=== PATIENT | female | born 1945 | race Caucasian/White ===

== ENCOUNTER → 2017-09-16 | Outpatient (CLI) | payer MEDICARE ==
--- NOTE | 2017-09-16 14:10 | MM ---
Reason for exam: screening (asymptomatic). Last mammogram was performed 1 year and 2 months ago. History: Patient is postmenopausal. Family history of breast cancer in mother at age 72. Took hormonal contraceptives for 5 years beginning at age 32. Physical Findings: A clinical breast exam by your physician is recommended on an annual basis and results should be correlated with mammographic findings. MG 3D Screening Mammo W/Cad Bilateral CC, MLO, and XCCL view(s) were taken. Prior study comparison: July 07, 2016, bilateral MG 3d screening mammo w/cad. July 20, 2013, bilateral digital screening mammo w/CAD. The breast tissue is heterogeneously dense. This may lower the sensitivity of mammography. There is no discrete abnormality. ASSESSMENT: Negative, BI-RAD 1 RECOMMENDATION: Routine screening mammogram of both breasts in 1 year.
== END ==
LOC: RADMAMWWP 11:02
PROVIDERS: ATTEND Family Medicine
DX: Z12.31 Encounter for screening mammogram for malignant neoplasm of breast (principal)
CPT/HCPCS: 77063; 77067

== ENCOUNTER → 2018-10-04 | Outpatient (CLI) | payer MEDICARE ==
--- NOTE | 2018-10-05 11:46 | MM ---
Reason for exam: screening (asymptomatic). Last mammogram was performed 1 year and 1 month ago. History: Patient is postmenopausal. Family history of breast cancer in mother at age 72. Took hormonal contraceptives for 5 years beginning at age 32. Physical Findings: A clinical breast exam by your physician is recommended on an annual basis and results should be correlated with mammographic findings. MG 3D Screening Mammo W/Cad Bilateral CC and MLO view(s) were taken. Prior study comparison: September 16, 2017, bilateral MG 3d screening mammo w/cad. July 07, 2016, bilateral MG 3d screening mammo w/cad. The breast tissue is heterogeneously dense. This may lower the sensitivity of mammography. There is no discrete abnormality. ASSESSMENT: Negative, BI-RAD 1 RECOMMENDATION: Routine screening mammogram of both breasts in 1 year.
== END | disposition home or self-care (01) ==
LOC: RADMAMWWP 07:56
PROVIDERS: ATTEND Family Medicine
DX: Z12.31 Encounter for screening mammogram for malignant neoplasm of breast (principal)
CPT/HCPCS: 77063; 77067

== ENCOUNTER → 2019-10-12 | Outpatient (CLI) | payer MEDICARE ==
--- NOTE | 2019-10-12 11:35 | CT ---
EXAMINATION TYPE: CT abdomen wo con DATE OF EXAM: 10/12/2019 COMPARISON: None INDICATION: Intra-abdominal and pelvic swelling, mass and lump unspecified area DLP: 194.90 mGycm, Automated exposure control for dose reduction was used. CONTRAST: 0 mL of Isovue 300. Study performed with Oral Contrast TECHNIQUE: Axial images were obtained from above the diaphragm to the iliac crests in the axial plane at 5 mm thick sections. Reconstructed images are reviewed on the computer in the coronal plane. FINDINGS: Limited CT sections are obtained the lung bases. Some minimal infiltrate may be within the lingula. Tiny amount of groundglass opacities are within the periphery of the right middle lobe at the lung ba se. Coronary artery calcification is present. CT ABDOMEN: Liver: Enlarged subtle hypodense masslike areas may be present within the liver. Within the left lobe liver there appear to be 2 irregular hypodense areas with some subtle peripheral enhancement measuri ng roughly 6.4 cm and 3.8 cm. Additional abnormality is suspected within the right lobe liver. MRI ma y better delineate the abnormality. Consider ultrasound of the liver for additional workup. Spleen: Normal Pancreas: Normal Adrenal glands: The adrenal glands are normal. Gallbladder: Normal Kidneys: No masses are evident. No hydronephrosis is present. No cysts are present. Delayed images were obtained through the kidneys, which remain unremarkable. Aorta: Vascular calcification is within the aorta. Inferior vena cava: Normal. Study is performed with oral contrast. Loops of bowel distended with oral contrast appear unremarkabl e. Loops of bowel are incompletely distended causing some limitation. Contrast extends to the colon. IMPRESSIONS: 1. Hepatomegaly measuring 23 cm cranial caudal with some lobation of the liver. There is some irregu lar enhancement with some central hypodensity best visualized within the left lobe liver. Multiple ma sses are suspected. Additional workup is recommended with ultrasound. MRI may be required to better d elineate suspected masses within the enlarged liver A Yellow level critical message alert has been initiated for Vern Bhakta DO via the [employer] Critical Results System on 10/12/2019 11:31 AM. This message alert has been sent to Vern lao DO via the preferences provided by the clinician for the receipt of Radiology Critical Findings . Message ID [id number].
== END | disposition home or self-care (01) ==
LOC: RADCTMAIN 09:19
PROVIDERS: ATTEND Family Medicine
DX: R16.0 Hepatomegaly, not elsewhere classified (principal); K76.89 Other specified diseases of liver; Z13.9 Encounter for screening, unspecified
CPT/HCPCS: 36415; 74150; 82565; 84520

== ENCOUNTER → 2019-10-26 | Outpatient (CLI) | payer MEDICARE | END | disposition home or self-care (01) | LOC: RADMRIMAIN 10:54 | PROVIDERS: ATTEND Surgery | DX: Z53.9 Procedure and treatment not carried out, unspecified reason (principal) ==

== ENCOUNTER 2019-12-07 14:37 | Day surgery (SDC) | payer MEDICARE ==
[2019-12-06 09:30] VITALS: BMI 25.6
--- NOTE | 2019-12-06 20:21 | P.GSHP ---
History of Present Illness H&P Date: 12/07/19 CHIEF COMPLAINT: Metastatic colon cancer to liver HISTORY OF PRESENT ILLNESS: The patient is a 74-year-old female diagnosed with metastatic colon cancer to liver. She needs a Mediport placement for chemotherapy. PAST MEDICAL HISTORY: See list PAST SURGICAL HISTORY: See list CURRENT MEDICATIONS: See list. ALLERGIES: See list. SOCIAL HISTORY: See list. FAMILY HISTORY: See list. REVIEW OF ORGAN SYSTEMS: CONSTITUTIONAL: No fevers or chills. PHYSICAL EXAMINATION: Vital signs: Stable GENERAL: Well developed and in no acute distress. Pleasant. HEENT: No sclera icterus. Extraocular movements grossly intact. Moist buccal mucosa. Head is atraumatic, normocephalic. Hears conversational speech. No nasal drainage. NECK: Supple without lymphadenopathy. No JV distention. CHEST: Non-labored respirations and equal bilateral excursions. CARDIOVASCULAR: Regular rate and rhythm. Palpable 2+ radial pulses. ABDOMEN: Nontender. MUSCULOSKELETAL: No clubbing, cyanosis or edema. NEUROLOGIC: No focal or lateralizing signs. PSYCH: Appropriate affect. Alert and oriented to person, place and time. ASSESSMENT: 1. Metastatic colon cancer 2. Need for chemotherapeutic access. PLAN: 1. Agree with Port-A-Cath placement. Past Medical History Past Medical History: Cancer, Hypertension Additional Past Medical History / Comment(s): NEW DX OF STAGE 4 COLON CANCER WITH METS. NO RX FOR HTN History of Any Multi-Drug Resistant Organisms: None Reported Past Surgical History: Hysterectomy, Tonsillectomy Additional Past Surgical History / Comment(s): CAME IN YESTERDAY FOR PARACENTISIS BUT WAS UNSUCCESSFUL. Past Anesthesia/Blood Transfusion Reactions: No Reported Reaction Smoking Status: Former smoker - Past Family History Mother Family Medical History: Cancer Medications and Allergies Home Medications Medication Instructions Recorded Confirmed Type Calcium Citrate/Vitamin D3 1 tab PO DAILY 12/01/19 12/06/19 History [Calcium Cit 315-Vit D3 250 Tab] Docusate [Colace] 100 mg PO DAILY 12/01/19 12/06/19 History LORazepam [Ativan] 0.5 mg PO BID 12/01/19 12/06/19 History Ondansetron [Zofran] 4 mg PO Q8HR PRN 12/01/19 12/06/19 History Psyllium Husk (with Sugar) 1 pack PO DAILY 12/01/19 12/06/19 History [Metamucil Powder] traMADol HCl [Ultram] 50 mg PO Q6HR PRN 12/01/19 12/06/19 History Mirtazapine [Remeron] 15 mg PO HS 12/06/19 12/06/19 History Allergies Allergy/AdvReac Type Severity Reaction Status Date / Time No Known Allergies Allergy Verified 12/06/19 09:25
[~2019-12-07 14:37] MED LIST: DEXAMETHASONE SOD PHOSPHATE 10 MG/ML 1 ML VIAL IV ONE; HYDROmorphone 0.5 MG/0.5 ML SYRINGE IVP PRN; LACTATED RINGERS 1,000 ML IV SCH; ONDANSETRON 4 MG/2 ML VIAL IVP ONE; Pre Op ABX Message 1 EACH MISC MISCELLANE ONE
[2019-12-07] MEDS ORDERED: LIDOCAINE 1% (10MG/ML) FOR IV START INTRADERMA ONE (15:10)
[2019-12-07 15:37] VITALS: RESP 18; TEMP 98.5
[2019-12-07] MEDS ORDERED: LIDOCAINE 1% INJ 10MG/ML (20 ML MDV) ONE (17:03)
[2019-12-07] MEDS ORDERED: PROPOFOL 10 MG/ML 20 ML VIAL IV ONE (17:03)
[2019-12-07] MEDS ORDERED: MIDAZOLAM 2 MG/2 ML VIAL ONE (17:03)
[2019-12-07] MEDS ORDERED: BUPIVACAIN-EPI 0.25%-1:200,000 30 ML VIAL SQ ONE (17:31)
[2019-12-07] MEDS ORDERED: HEPARIN SODIUM,PORCINE 100 UNIT/ML 5 ML VIAL IV ONE (17:31)
--- NOTE | 2019-12-07 18:04 | P.HPADDEND ---
H&P Addendum H&P Addendum Date: 12/07/19 Patient reports recent diagnosis of metastatic colon cancer. She and son confirms patient had delayed decision making for about 4 weeks. Patient received coronavirus testing and is negative. We'll proceed with port placement
[2019-12-07 18:15] VITALS: BP 134/70; PULSE 98
--- NOTE | 2019-12-07 18:33 | XR ---
EXAMINATION: XR chest 1V confirm line [facility] DATE AND TIME: 12/07/2019 6:16 PM CLINICAL INDICATION: PHH; line placement TECHNIQUE: AP upright portable chest COMPARISON: None FINDINGS: Right IJ catheter tip superimposed over the distal SVC. The lungs are clear. The pleural spaces are negative. There is no pneumothorax. The cardiac silhouette is not enlarged. The remainder of the mediastinal silhouette is unremarkable. Elevated right hemidiaphragm noted, etiology unclear Skeletal structures and soft tissues are negative for acute findings. IMPRESSION: NO ACUTE PROCESS.
--- NOTE | 2019-12-07 19:08 | P.OP ---
Date of Procedure: 12/07/19 Description of Procedure: SURGEON: ERI CASEY MD ERP ANALYST: None. PREOPERATIVE DIAGNOSES: 1. Metastatic colon cancer 2. Need for chemotherapeutic access. 3. Jaundice POSTOPERATIVE DIAGNOSES: 1. Metastatic colon cancer 2. Need for chemotherapeutic access. 3. Jaundice PROCEDURES PERFORMED: 1. Ultrasound guided central venous access of the right internal jugular venous vein. 2. Fluoroscopic guidance for central venous access right internal jugular vein less than 1 seconds. 3. Placement of right internal jugular power port 6 Croatian by [employer], Xcel[employer] Plus Port ANESTHESIA: IV sedation with local. ESTIMATED BLOOD LOSS: 5 mL. SPECIMENS REMOVED: None. COMPLICATIONS: None. INDICATIONS: The patient is a 74-year-old female recently diagnosed with metastatic colon cancer. She presents for chemotherapeutic access. Benefits and risks of surgical intervention were described including bleeding, infection, mechanical problems with his port. Informed consent was obtained. DESCRIPTION OR PROCEDURE: Patient was brought into the operating room, laid in supine position. After adequate IV sedation, the chest and right neck were prepped and draped in a standard sterile fashion including the shoulder with ChloraPrep. Timeout protocol was confirmed with the surgical team regarding the patient's name, procedure to be performed including preoperative medications for which she received IV antibiotics. Bilateral SCDs were placed. An ultrasound was used to capture views of the right internal jugular vein including right carotid artery, which was patent and without thrombus along its course. The right IJ was then localized using anesthetic for the skin. A 16 Croatian needle was used to access the IJ. A guidewire was advanced into the IJ with dark nonpulsatile venous blood. Two fingerbreadths distal to the clavicle, on the lateral third, a transverse 1.5 to 2 cm incision was deepened into the skin after localizing the skin. A pocket was created for the port. The port on the back table was flushed with heparinized saline and then attached to the catheter tubing. An adapter was fastened to the actual port site over the tubing. The port easily had fit snug into the pocket. A subcutaneous tunneler was placed along the open end of the tubing and brought out through the separate stab incision. Fluoroscopic guidance confirmed no kinking along the tubing and the port site. Next, the J-wire was exchanged for a catheter sheath for which the tubing was cut to 24 cm and then advanced through the catheter sheath. The Peel-away sheath was then removed and the tubing was secured at the junction of the superior vena cava as well as the right atrium. The tubing was found to be crossed however functional. This was all done under fluoroscopic guidance under 1 seconds. Easy pullback as well as return and aspiration was obtained of the port site. The skin incision was closed using layers using 3-0 Vicryl for the subcu followed by 4-0 Monocryl in a running subcuticular fashion. At the stick site this was also reapproximated using 4-0 Monocryl. The incisions were covered with Optifoam, The skin was cleansed and Exofin liquid glue was applied. Optifoam dressing was placed over the port site. A total of 20 mL of local anesthetic was placed. At the end of the procedure, needle, sponge, and instrument count was verified correct by rn medical surgical. Heparin lock of 5 mL was placed. The patient was awoken and pain free and taken to the second stage postanesthesia care unit. The patient tolerated the procedure well. FINDINGS: 1. No thrombus encountered along the right carotid artery or internal jugular vein. 2. Access of the right internal jugular vein under ultrasound guidance. 3. Fluoroscopy of less than 1 seconds. 4. Less than 10% thrombus along the bifurcation of the internal jugular Plan - Discharge Summary Discharge Rx Participant: Yes New Discharge Prescriptions: New Acetaminophen [Tylenol] 325 mg PO Q4H #30 tab Continue Ondansetron [Zofran] 4 mg PO Q8HR PRN PRN Reason: Nausea Docusate [Colace] 100 mg PO DAILY traMADol HCl [Ultram] 50 mg PO Q6HR PRN PRN Reason: Pain LORazepam [Ativan] 0.5 mg PO BID Psyllium Husk (with Sugar) [Metamucil Powder] 1 pack PO DAILY Calcium Citrate/Vitamin D3 [Calcium Cit 315-Vit D3 250 Tab] 1 tab PO DAILY Mirtazapine [Remeron] 15 mg PO HS Discharge Medication List Calcium Citrate/Vitamin D3 [Calcium Cit 315-Vit D3 250 Tab] 1 tab PO DAILY 12/01/19 [History] Docusate [Colace] 100 mg PO DAILY 12/01/19 [History] LORazepam [Ativan] 0.5 mg PO BID 12/01/19 [History] Ondansetron [Zofran] 4 mg PO Q8HR PRN 12/01/19 [History] Psyllium Husk (with Sugar) [Metamucil Powder] 1 pack PO DAILY 12/01/19 [History] traMADol HCl [Ultram] 50 mg PO Q6HR PRN 12/01/19 [History] Mirtazapine [Remeron] 15 mg PO HS 12/06/19 [History] Acetaminophen [Tylenol] 325 mg PO Q4H #30 tab 12/07/19 [Rx] Follow up Appointment(s)/Referral(s): Eri Casey MD [STAFF PHYSICIAN] - As Needed Patient Instructions/Handouts: *Surgery [facility] - (Anesthesia) Discharge Instructions Outpatient Surgery, Implanted Venous Access Port (GEN), How to Care for Your Implanted Venous Access Port (DC) Activity/Diet/Wound Care/Special Instructions: Remove dressing on December 11. November shower. No bathtub soaks for 2 weeks, December 20. No wide motions of the right arm to prevent dislodge of your port for 3 weeks. EXPECT BRUISING AND SLEEP WITH 2 TO 3 PILLOWS. BRUISING RESOLVES IN 2 TO 3 WEEKS. Discharge Disposition: HOME SELF-CARE
--- NOTE | 2019-12-08 07:35 | FL ---
EXAMINATION TYPE: FL guided central line placemt DATE OF EXAM: 12/07/2019 CLINICAL HISTORY: Fluoroscopic documentation during Port-A-Cath placement TECHNIQUE: Fluoroscopy. COMPARISON: None. FINDINGS: Fluoroscopic guidance was provided during procedure performed by Dr. Casey. A total o f 1 seconds of fluoroscopic time was utilized during the procedure and 1 spot images was acquired dur ing Port-A-Cath placement. IMPRESSION: As Above.
== END 2019-12-07 18:49 | disposition home or self-care (01) ==
LOC: OR 14:37
PROVIDERS: ATTEND Surgery Plastic and Reconstructive Surgery
DX: C18.9 Malignant neoplasm of colon, unspecified (principal); C78.7 Secondary malignant neoplasm of liver and intrahepatic bile duct; R17 Unspecified jaundice; Z03.818 Encounter for observation for suspected exposure to other biological agents ruled out; I10 Essential (primary) hypertension; J44.9 Chronic obstructive pulmonary disease, unspecified; E78.5 Hyperlipidemia, unspecified; Z79.899 Other long term (current) drug therapy; Z90.710 Acquired absence of both cervix and uterus; Z90.89 Acquired absence of other organs; Z87.891 Personal history of nicotine dependence; Z80.9 Family history of malignant neoplasm, unspecified
CPT/HCPCS: 36561; 87635; 77001; C1788; J2250; J1642; J1100; J0690; J2405; J2001; J2704

== ENCOUNTER 2020-02-07 21:03 | Inpatient (IN) | payer MEDICARE ==
[2020-02-07] MEDS ORDERED: IPRATROPIUM-ALBUTEROL 3 ML NEB INHALATION STA (21:50)
--- NOTE | 2020-02-07 21:54 | ED ---
SOB HPI - General Chief Complaint: Shortness of Breath Stated Complaint: SOB Time Seen by Provider: 02/07/20 21:26 Source: patient, family, RN notes reviewed Mode of arrival: wheelchair - History of Present Illness Initial Comments: This is a 74-year-old female history of metastatic colon cancer who just had chemotherapy week who presents with complaints of shortness of breath is been going on for about a week or so getting progressively worse especially over last day or 2. He also complains of increasing lower extremity edema. No fevers chills or sweats she states she does get nauseated she takes a inhaler at home. Patient also complains of weakness. No other modifying factors other than she does have a distended abdomen she states she has had a paracentesis recently. MD Complaint: shortness of breath - Related Data Home Medications Medication Instructions Recorded Confirmed LORazepam [Ativan] 0.25 mg PO BID@1100,1700 12/01/19 02/07/20 traMADol HCl [Ultram] 50 mg PO TID@0800,1400,199912/01/19 02/07/20 Albuterol Sulfate [Ventolin HFA] 2 puff INHALATION RT-Q6H PRN 02/07/20 02/07/20 Famotidine [Pepcid AC] 10 mg PO DAILY@0800 02/07/20 02/07/20 Furosemide [Lasix] 20 mg PO DAILY PRN 02/07/20 02/07/20 Ondansetron [Zofran ODT] 4 - 8 mg PO Q6H PRN 02/07/20 02/07/20 Potassium Chloride ER [K-Dur 10] 10 meq PO DAILY PRN 02/07/20 02/07/20 Prochlorperazine [Compazine] 10 mg PO Q6H PRN 02/07/20 02/07/20 Sennosides/Docusate Sodium 1 tab PO HS@199902/07/20 02/07/20 [Senna-Plus Tablet] Allergies Allergy/AdvReac Type Severity Reaction Status Date / Time No Known Allergies Allergy Verified 02/07/20 21:20 Review of Systems ROS Statement: Those systems with pertinent positive or pertinent negative responses have been documented in the HPI. ROS Other: All systems not noted in ROS Statement are negative. Past Medical History Past Medical History: Cancer, Hypertension Additional Past Medical History / Comment(s): NEW DX OF STAGE 4 COLON CANCER WITH METS. NO RX FOR HTN History of Any Multi-Drug Resistant Organisms: None Reported Past Surgical History: Hysterectomy, Tonsillectomy Additional Past Surgical History / Comment(s): PARACENTISIS, port placement Past Anesthesia/Blood Transfusion Reactions: No Reported Reaction Past Psychological History: Anxiety, Depression Smoking Status: Former smoker Past Alcohol Use History: None Reported Past Drug Use History: None Reported - Past Family History Mother Family Medical History: Cancer General Exam - General Exam Comments Initial Comments: This is a well-developed sec appearing female who is awake alert oriented 3 General appearance: alert, lethargic Head exam: Present: atraumatic, normocephalic, normal inspection Eye exam: Present: normal appearance, PERRL, EOMI. Absent: scleral icterus, conjunctival injection, periorbital swelling ENT exam: Present: normal exam, mucous membranes moist Neck exam: Present: normal inspection, full ROM, other. Absent: tenderness, meningismus, lymphadenopathy Respiratory exam: Present: decreased breath sounds (Stridor JVD or bruits). Absent: respiratory distress, wheezes, rales, rhonchi, stridor Cardiovascular Exam: Present: normal rhythm, tachycardia, normal heart sounds. Absent: systolic murmur, diastolic murmur, rubs, gallop, clicks GI/Abdominal exam: Present: soft, normal bowel sounds. Absent: distended, tenderness, guarding, rebound, rigid Extremities exam: Present: normal inspection, full ROM, normal capillary refill, pedal edema. Absent: tenderness, joint swelling, calf tenderness Back exam: Present: normal inspection Neurological exam: Present: alert, oriented X3, CN II-XII intact Psychiatric exam: Present: normal affect, normal mood Skin exam: Present: warm, dry, intact, normal color. Absent: rash Course Vital Signs 02/07/20 02/07/20 02/07/20 21:17 21:37 22:13 Temperature 98.5 F Pulse Rate 107 H 103 H Respiratory 16 Rate Blood Pressure 120/65 O2 Sat by Pulse 94 L 99 Oximetry 02/07/20 22:41 Temperature Pulse Rate 102 H Respiratory 16 Rate Blood Pressure 126/68 O2 Sat by Pulse 98 Oximetry Medical Decision Making - Medical Decision Making I did discuss findings with the patient and her son was present. Patient does have evidence of peripheral edema CHF elevated BNP also mildly elevated troponin. Patient will be admitted with consultation to Dr. Mathew and Dr. Song. The patient would like to forego cardiology consult this time. IV Lasix patient was offered a Brasher catheter and is declining at this time. Also of note patient did get some relief in her breathing after nebulizer treatments so there is a component of COPD. - Lab Data Result diagrams: 02/07/20 22:11 02/07/20 22:11 Lab Results 02/07/20 02/07/20 02/07/20 Range/Units 22:11 22:11 22:11 WBC 36.0 H (3.8-10.6) k/uL RBC 2.68 L (3.80-5.40) m/uL Hgb 8.3 L (11.4-16.0) gm/dL Hct 26.2 L (34.0-46.0) % MCV 97.9 (80.0-100.0) fL MCH 30.8 (25.0-35.0) pg MCHC 31.4 (31.0-37.0) g/dL RDW 22.0 H (11.5-15.5) % Plt Count 173 (150-450) k/uL Neutrophils % (Manual) 79 % Band Neutrophils % 15 % Lymphocytes % (Manual) 2 % Monocytes % (Manual) 2 % Metamyelocytes % 2 % Myelocytes % 1 % Neutrophils # (Manual) 33.80 H (1.3-7.7) k/uL Lymphocytes # (Manual) 0.72 L (1.0-4.8) k/uL Monocytes # (Manual) 0.72 (0-1.0) k/uL Metamyelocytes # (Man) 0.72 H (0) k/uL Myelocytes # (Manual) 0.36 H (0) k/uL Nucleated RBCs 2 H (0-0) /100 WBC Manual Slide Review Performed Toxic Vacuolation Present Polychromasia Present Hypochromasia Moderate Poikilocytosis Slight Anisocytosis Moderate Anisocytosis (manual) Present Macrocytosis Moderate PT 11.2 (9.0-12.0) sec INR 1.1 (<1.2) APTT 26.7 (22.0-30.0) sec D-Dimer 4.01 H (<0.60) mg/L FEU Sodium 133 L (137-145) mmol/L Potassium 3.5 (3.5-5.1) mmol/L Chloride 98 (98-107) mmol/L Carbon Dioxide 29 (22-30) mmol/L Anion Gap 6 mmol/L BUN 13 (7-17) mg/dL Creatinine 0.51 L (0.52-1.04) mg/dL Est GFR (CKD-EPI)AfAm >90 (>60 ml/min/1.73 sqM) Est GFR (CKD-EPI)NonAf >90 (>60 ml/min/1.73 sqM) Glucose 104 H (74-99) mg/dL Plasma Lactic Acid Alex (0.7-2.0) mmol/L Calcium 8.3 L (8.4-10.2) mg/dL Magnesium 1.6 (1.6-2.3) mg/dL Total Bilirubin 2.4 H (0.2-1.3) mg/dL AST 73 H (14-36) U/L ALT 21 (4-34) U/L Alkaline Phosphatase 438 H (38-126) U/L Creatine Kinase 22 L (30-135) U/L Troponin I (0.000-0.034) ng/mL NT-Pro-B Natriuret Pep pg/mL Total Protein 4.8 L (6.3-8.2) g/dL Albumin 2.3 L (3.5-5.0) g/dL 02/07/20 02/07/20 02/07/20 Range/Units 22:11 22:11 22:11 WBC (3.8-10.6) k/uL RBC (3.80-5.40) m/uL Hgb (11.4-16.0) gm/dL Hct (34.0-46.0) % MCV (80.0-100.0) fL MCH (25.0-35.0) pg MCHC (31.0-37.0) g/dL RDW (11.5-15.5) % Plt Count (150-450) k/uL Neutrophils % (Manual) % Band Neutrophils % % Lymphocytes % (Manual) % Monocytes % (Manual) % Metamyelocytes % % Myelocytes % % Neutrophils # (Manual) (1.3-7.7) k/uL Lymphocytes # (Manual) (1.0-4.8) k/uL Monocytes # (Manual) (0-1.0) k/uL Metamyelocytes # (Man) (0) k/uL Myelocytes # (Manual) (0) k/uL Nucleated RBCs (0-0) /100 WBC Manual Slide Review Toxic Vacuolation Polychromasia Hypochromasia Poikilocytosis Anisocytosis Anisocytosis (manual) Macrocytosis PT (9.0-12.0) sec INR (<1.2) APTT (22.0-30.0) sec D-Dimer (<0.60) mg/L FEU Sodium (137-145) mmol/L Potassium (3.5-5.1) mmol/L Chloride (98-107) mmol/L Carbon Dioxide (22-30) mmol/L Anion Gap mmol/L BUN (7-17) mg/dL Creatinine (0.52-1.04) mg/dL Est GFR (CKD-EPI)AfAm (>60 ml/min/1.73 sqM) Est GFR (CKD-EPI)NonAf (>60 ml/min/1.73 sqM) Glucose (74-99) mg/dL Plasma Lactic Acid Alex 2.0 (0.7-2.0) mmol/L Calcium (8.4-10.2) mg/dL Magnesium (1.6-2.3) mg/dL Total Bilirubin (0.2-1.3) mg/dL AST (14-36) U/L ALT (4-34) U/L Alkaline Phosphatase (38-126) U/L Creatine Kinase (30-135) U/L Troponin I 0.053 H* (0.000-0.034) ng/mL NT-Pro-B Natriuret Pep 4120 pg/mL Total Protein (6.3-8.2) g/dL Albumin (3.5-5.0) g/dL - EKG Data -: EKG Interpreted by Ar EKG shows normal: sinus rhythm (Sinus tachycardia rate 103. Interval 118 QRS duration 74 QT since QTC 322/421 poor R-wave progression.) - Radiology Data Radiology results: report reviewed, image reviewed Disposition Clinical Impression: Congestive heart failure, Peripheral edema, Ascites, Elevated troponin, Metastatic colon cancer in female Disposition: ADMITTED IP TO THIS [facility] Condition: Fair Referrals: Vern Bhakta DO [Primary Care Provider] - 1-2 days
[2020-02-07 22:30] LABS: ALT 21 U/L (4-34); AST 73 U/L (14-36); African American GFR (CKD) >90 (>60 ml/min/1.73 sqM); Albumin 2.3 g/dL (3.5-5.0); Alkaline Phosphatase 438 U/L (38-126); Anion Gap 6 mmol/L; Blood Urea Nitrogen 13 mg/dL (7-17); Calcium 8.3 mg/dL (8.4-10.2); Carbon Dioxide 29 mmol/L (22-30); Chloride 98 mmol/L (98-107); Creatine Kinase 22 U/L (30-135); Glucose 104 mg/dL (74-99); Magnesium 1.6 mg/dL (1.6-2.3); Non-African American GFR(CKD) >90 (>60 ml/min/1.73 sqM); Potassium 3.5 mmol/L (3.5-5.1); Sodium 133 mmol/L (137-145); Total Bilirubin 2.4 mg/dL (0.2-1.3); Total Protein 4.8 g/dL (6.3-8.2)
[2020-02-07 22:32] LABS: Anisocytosis Moderate; HCT 26.2 % (34.0-46.0); HGB 8.3 gm/dL (11.4-16.0); Hypochromasia Moderate; MCH 30.8 pg (25.0-35.0); MCHC 31.4 g/dL (31.0-37.0); MCV 97.9 fL (80.0-100.0); Macrocytosis Moderate; Mean Platelet Volume 8.3; Platelet Count 173 k/uL (150-450); Poikilocytosis Slight; RBC 2.68 m/uL (3.80-5.40)
[2020-02-07 22:37] LABS: INR 1.1 (<1.2); Partial Thromboplastin Time 26.7 sec (22.0-30.0); Prothrombin Time 11.2 sec (9.0-12.0)
[2020-02-07 22:39] LABS: D-Dimer 4.01 mg/L FEU (<0.60)
--- NOTE | 2020-02-07 22:41 | XR ---
EXAMINATION TYPE: XR chest 2V DATE OF EXAM: 02/07/2020 COMPARISON: 12/07/2019 HISTORY: Short of breath TECHNIQUE: 2 views FINDINGS: There is right-sided central venous catheter with the tip in the superior vena cava. There is moderate bilateral pleural effusions with basilar atelectasis. There is no definite heart failure. Bones appear osteopenic. IMPRESSION: Bilateral pleural effusions and basilar atelectasis increased compared to old exam. No de finite heart failure.
[2020-02-07 22:52] LABS: Band Neutrophils % 15 %; Metamyelocytes % 2 %; Myelocytes % 1 %; Neutrophils % (M) 79 %; Nucleated Red Blood Cells 2 /100 WBC (0-0); Total Cells Counted 200
[2020-02-07 22:53] LABS: Anisocytosis (M) Present; Lymphocytes # (M) 0.72 k/uL (1.0-4.8); Metamyelocytes # (M) 0.72 k/uL (0); Monocytes # (M) 0.72 k/uL (0-1.0); Myelocytes # (M) 0.36 k/uL (0); Polychromasia Present; Toxic Vacuolation Present
--- NOTE | 2020-02-07 23:33 | CT ---
EXAMINATION TYPE: CT angio chest DATE OF EXAM: 02/07/2020 COMPARISON: None HISTORY: elevated d-dimer CT DLP: 261.6 mGycm Automated exposure control for dose reduction was used. CONTRAST: Performed with IV Contrast, patient injected with 96cc mL of Isovue 370. Images were obtained from the thoracic inlet to the diaphragm with IV contrast and 3-D post processed images. There are mild to moderate bilateral pleural effusions. Heart is slightly enlarged. There is patchy i nfiltrate and atelectasis at the lung bases. There is some coarse interstitial pulmonary density. The re is no mediastinal adenopathy. There are no hilar masses. Thoracic aorta is intact. There is no ane urysm or dissection. There is normal contrast opacification of the pulmonary arteries. There are no filling defects. There is some plaque formation at the descending proximal thoracic aorta. There is heterogeneity throughout the liver suggestive of multiple masses. There is abdominal ascites . There is some osteopenia. There is slight anterior wedging of T10 vertebra 15%. There is 15% wedging of T4 vertebra. This is probably due to osteoporosis. I see no focal bone destruction. IMPRESSION: No evidence of pulmonary embolism. Pleural effusions and basilar infiltrates and atelectasis probably due to congestive heart failure. Abdominal ascites. Extensive hepatic metastatic disease also evident on the CT scan of 10/12/2019. Ple ural fluid and abdominal ascites are new compared to old exam.
[2020-02-08] MEDS ORDERED: FUROSEMIDE 10 MG/ML 4 ML VIAL IV STA (00:25)
[2020-02-08] MEDS ORDERED: PROCHLORPERAZINE 10 MG TAB PO PRN (00:27)
[2020-02-08] MEDS ORDERED: LIDOCAINE 5% PATCH TOPICAL STA (00:35)
[2020-02-08] MEDS: FUROSEMIDE 10 MG/ML 4 ML VIAL IV SCH ×3 (01:17→17:06)
[2020-02-08] MEDS: SODIUM CHLORIDE 0.9% 1,000 ML IV SCH (04:22)
[2020-02-08] MEDS ORDERED: POTASSIUM CHLORIDE ER 10 MEQ TAB.ER.PRT PO PRN (09:00)
[2020-02-08] MEDS: traMADol 50 MG TAB PO SCH ×3 (09:12→20:42)
[2020-02-08] MEDS: ONDANSETRON 4 MG/2 ML VIAL IVP PRN ×2 (09:13→17:23)
[2020-02-08] MEDS: FAMOTIDINE 20 MG TAB PO SCH (09:13)
[2020-02-08 10:21] LABS: Anisocytosis Moderate; Basophils # (A) 0.1 k/uL (0-0.2); Basophils % (A) 1 %; Eosinophils # (A) 0.1 k/uL (0-0.7); Eosinophils % (A) 0 %; HCT 26.6 % (34.0-46.0); HGB 8.6 gm/dL (11.4-16.0); Hypochromasia Moderate; Lymphocytes # (A) 0.9 k/uL (1.0-4.8); Lymphocytes % (A) 4 %; MCH 31.5 pg (25.0-35.0); MCHC 32.4 g/dL (31.0-37.0); MCV 97.1 fL (80.0-100.0); Macrocytosis Moderate; Mean Platelet Volume 8.1; Monocytes # (A) 0.8 k/uL (0-1.0); Monocytes % (A) 4 %; Neutrophils # (A) 20.2 k/uL (1.3-7.7); Neutrophils % (A) 91 %; Platelet Count 169 k/uL (150-450); Poikilocytosis Slight; RBC 2.75 m/uL (3.80-5.40); RDW 21.9 % (11.5-15.5); WBC 22.3 k/uL (3.8-10.6)
[2020-02-08 10:42] LABS: ALT 21 U/L (4-34); AST 74 U/L (14-36); African American GFR (CKD) >90 (>60 ml/min/1.73 sqM); Albumin 2.4 g/dL (3.5-5.0); Alkaline Phosphatase 460 U/L (38-126); Anion Gap 7 mmol/L; Blood Urea Nitrogen 13 mg/dL (7-17); Calcium 8.2 mg/dL (8.4-10.2); Carbon Dioxide 31 mmol/L (22-30); Chloride 96 mmol/L (98-107); Glucose 111 mg/dL (74-99); Magnesium 1.6 mg/dL (1.6-2.3); Non-African American GFR(CKD) >90 (>60 ml/min/1.73 sqM); Sodium 134 mmol/L (137-145); Total Bilirubin 2.7 mg/dL (0.2-1.3)
[2020-02-08] MEDS ORDERED: Magnesium Replacement Protocol 1 EACH MISC MISCELLANE PRN ×2 (10:55→11:34)
[2020-02-08] MEDS ORDERED: Potassium Replacement Protocol 1 EACH MISC MISCELLANE PRN ×3 (10:55→18:29)
[2020-02-08] MEDS ORDERED: POTASSIUM CHLORIDE 20 MEQ in WATER FOR INJECTION 1 100ML.BAG IVPB STA (11:01)
[2020-02-08] MEDS ORDERED: IOPAMIDOL CONTRAST (ORAL USE) VIAL PO PRN (11:04)
[2020-02-08] MEDS ORDERED: POTASSIUM CHLORIDE ER 20 MEQ TAB.ER PO STA (11:11)
[2020-02-08] MEDS: LORazepam 0.5 MG TAB PO SCH ×2 (11:13→17:06)
[2020-02-08] MEDS: POTASSIUM CHLORIDE ER 20 MEQ TAB.ER PO SCH ×4 (11:14→18:30)
[2020-02-08] MEDS: MAGNESIUM SULFATE-D5W PMX 1 GM in DEXTROSE/WATER 1 100ML.BAG IVPB SCH ×2 (12:35→14:20)
--- NOTE | 2020-02-08 12:56 | US ---
EXAMINATION TYPE: US venous doppler duplex LE DATE OF EXAM: 02/08/2020 12:36 PM COMPARISON: NONE CLINICAL HISTORY: bilateral leg swelling/redness. Bilateral leg swelling SIDE PERFORMED: Bilateral TECHNIQUE: The lower extremity deep venous system is examined utilizing real time linear array sonog alissa with graded compression, doppler sonography and color-flow sonography. VESSELS IMAGED: External Iliac Vein (EIV) Common Femoral Vein Deep Femoral Vein Greater Saphenous Vein * Femoral Vein Popliteal Vein Small Saphenous Vein * Proximal Calf Veins (* superficial vessels) Right Leg: Appears negative for DVT Left Leg: Appears negative for DVT IMPRESSION: 1. No diagnostic evidence of DVT as visualized.
--- NOTE | 2020-02-08 13:45 | P.CRDCN ---
History of Present Illness History of present illness: HISTORY OF PRESENTING ILLNESS This is a pleasant 74-year-old female past medical history significant for colon cancer with metastasis to the liver, hypertension that has improved s nicky being diagnosed with cancer and former nicotine dependence. 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 We have been asked to see in consultation for troponin elevation. she states she has been increasingly short of breath over the previous one week. over the previous 2 days her symptoms have worsened. She is unable to lay flat and is only comfortable in certain positions. She has required paracentesis on 2 separate occasions secondary to recurrent ascites. She is scheduled to have one on Wednesday. Her daughter is at the bedside and provides much of her historical information. She was sent to the hospital on advice of her oncologist secondary to increasing shortness of breath and edema. She denies chest pain, dizziness or palpitations. DIAGNOSTICS EKG reveals sinus tachycardia with poor R-wave progression heart rate of 103. Chest xray bilateral pleural effusions and basilar atelectasis. CTA of the chest is negative for pulmonary embolism, bilateral pleural effusions and abdominal ascites. Extensive hepatic metastatic disease evident. Laboratory reviewed, WBC on admission 30 6 repeat today 22, hemoglobin 8.6, platelets 169,sodium 134, potassium 3.0, creatinine 0.51, magnesium 1.6, alkaline phosphatase 460, albumin 2.4, total protein 5.0, troponin 0.053, 0.055, 0.054 and NTproBNP 4120. Current cardiac medications include Lasix 20 mg daily as needed for lower extremity edema. REVIEW OF SYSTEMS At the time of my exam: CONSTITUTIONAL: Denies fever or chills. CARDIOVASCULAR: Complains of shortness of breath and orthopnea. Denies chest pain, PND or palpitations. RESPIRATORY: Denies cough. GASTROINTESTINAL: Denies abdominal pain, diarrhea, constipation, nausea or vomiting. MUSCULOSKELETAL: Denies myalgias. NEUROLOGIC: Denies numbness, tingling or weakness. ENDOCRINE: Denies fatigue, weight change, polydipsia or polyurina. GENITOURINARY: Denies burning, hematuria or urgency with micturation. HEMATOLOGIC: Denies history of anemia or bleeding. PHYSICAL EXAMINATION Blood pressure 111/75 heart rate 101 afebrile and maintaining oxygen saturation on . CONSTITUTIONAL: No apparent distress. HEENT: Head is normocephalic. Pupils are equal, round. Sclerae anicteric. Mucous membranes of the mouth are moist. No JVD. No carotid bruit. CHEST EXAMINATION: Lungs are clear to auscultation. No chest wall tenderness is noted on palpation or with deep breathing. Diminished bilaterally. HEART EXAMINATION: Regular rate and rhythm. S1, S2 heard. No murmurs, gallops or rub. ABDOMEN: Soft, nontender, distended. Positive bowel sounds. EXTREMITIES: 2+ peripheral pulses, 2+ pitting bilateral lower extremity edema and no calf tenderness. NEUROLOGIC EXAMINATION: Patient is awake, alert and oriented x3. ASSESSMENT Fluid overload secondary to metastatic colon and liver CA and hypoalbuminemia Troponin leak, not indicative of an acute event with no typical rise and fall pattern. No chest pain or EKG changes. Hypokalemia Metastatic colon cancer Prior history hypertension with recent hypotension Former nicotine dependence PLAN Replace potassium per protocol. Obtain 2D echocardiogram and doppler study to assess cardiac structure and function. If echo is normal there is no further cardiac work-up or evaluation required. Ongoing medical management and possible paracentesis. Thank you kindly for this consultation. Nurse Practitioner note has been reviewed, I agree with a documented findings and plan of care. Patient was seen and examined. Past Medical History Past Medical History: Cancer, Hypertension Additional Past Medical History / Comment(s): NEW DX OF STAGE 4 COLON CANCER WITH METS. NO RX FOR HTN History of Any Multi-Drug Resistant Organisms: None Reported Past Surgical History: Hysterectomy, Tonsillectomy Additional Past Surgical History / Comment(s): PARACENTISIS, port placement Past Anesthesia/Blood Transfusion Reactions: No Reported Reaction Past Psychological History: Anxiety, Depression Smoking Status: Former smoker Past Alcohol Use History: None Reported Additional Past Alcohol Use History / Comment(s): QUIT SMOKING 2016 Past Drug Use History: None Reported - Past Family History Mother Family Medical History: Cancer Medications and Allergies Home Medications Medication Instructions Recorded Confirmed Type LORazepam [Ativan] 0.25 mg PO BID@1100,1700 12/01/19 02/07/20 History traMADol HCl [Ultram] 50 mg PO TID@0800,1400,2000 12/01/19 02/07/20 History Albuterol Sulfate [Ventolin HFA] 2 puff INHALATION RT-Q6H PRN 02/07/20 02/07/20 History Famotidine [Pepcid AC] 10 mg PO DAILY@0800 02/07/20 02/07/20 History Furosemide [Lasix] 20 mg PO DAILY PRN 02/07/20 02/07/20 History Ondansetron [Zofran ODT] 4 - 8 mg PO Q6H PRN 02/07/20 02/07/20 History Potassium Chloride ER [K-Dur 10] 10 meq PO DAILY PRN 02/07/20 02/07/20 History Prochlorperazine [Compazine] 10 mg PO Q6H PRN 02/07/20 02/07/20 History Sennosides/Docusate Sodium 1 tab PO HS@199902/07/20 02/07/20 History [Senna-Plus Tablet] Allergies Allergy/AdvReac Type Severity Reaction Status Date / Time No Known Allergies Allergy Verified 02/07/20 21:20 Physical Exam Vitals: Vital Signs Temp Pulse Pulse Resp BP BP Pulse Ox 02/08/20 12:45 97.5 F L 101 H 17 111/65 92 L 02/08/20 07:00 97.6 F 105 H 16 120/72 95 02/08/20 02:05 98.1 F 104 H 16 100/67 97 02/08/20 01:45 78 18 125/77 96 02/07/20 22:41 102 H 16 126/68 98 02/07/20 22:13 103 H 02/07/20 21:37 99 02/07/20 21:17 98.5 F 107 H 16 120/65 94 L Intake and Output 02/07/20 02/08/20 02/08/20 22:59 06:59 14:59 Output Total 1100 1950 Balance -1099 -1949 Output: Urine 1100 1950 Other: Voiding Method Bedpan Weight 68.039 kg 68.039 kg 68.039 kg Results 02/08/20 10:05 02/08/20 10:05 Cardiac Enzymes 02/07/20 02/07/20 02/08/20 Range/Units 22:11 22:11 01:44 AST 73 H (14-36) U/L Troponin I 0.053 H* 0.055 H* (0.000-0.034) ng/mL 02/08/20 02/08/20 Range/Units 03:25 10:05 AST 74 H (14-36) U/L Troponin I 0.054 H* (0.000-0.034) ng/mL Coagulation 02/07/20 Range/Units 22:11 PT 11.2 (9.0-12.0) sec APTT 26.7 (22.0-30.0) sec CBC 02/07/20 02/08/20 Range/Units 22:11 10:05 WBC 36.0 H 22.3 H (3.8-10.6) k/uL RBC 2.68 L 2.75 L (3.80-5.40) m/uL Hgb 8.3 L 8.6 L (11.4-16.0) gm/dL Hct 26.2 L 26.6 L (34.0-46.0) % Plt Count 173 169 (150-450) k/uL Comprehensive Metabolic Panel 02/07/20 02/08/20 Range/Units 22:11 10:05 Sodium 133 L 134 L (137-145) mmol/L Potassium 3.5 3.0 L (3.5-5.1) mmol/L Chloride 98 96 L (98-107) mmol/L Carbon Dioxide 29 31 H (22-30) mmol/L BUN 13 13 (7-17) mg/dL Creatinine 0.51 L 0.51 L (0.52-1.04) mg/dL Glucose 104 H 111 H (74-99) mg/dL Calcium 8.3 L 8.2 L (8.4-10.2) mg/dL AST 73 H 74 H (14-36) U/L ALT 21 21 (4-34) U/L Alkaline Phosphatase 438 H 460 H (38-126) U/L Total Protein 4.8 L 5.0 L (6.3-8.2) g/dL Albumin 2.3 L 2.4 L (3.5-5.0) g/dL Current Medications Generic Name Dose Route Start Last Admin Trade Name Freq PRN Reason Stop Dose Admin Famotidine 10 mg 02/08/20 08:00 02/08/20 09:13 Pepcid PO 10 mg DAILY@0800 DOMINGO Administration Furosemide 40 mg 02/08/20 00:30 02/08/20 09:14 Lasix IV 40 mg Q8H DOMINGO Administration Sodium Chloride 1,000 mls @ 20 mls/hr 02/08/20 00:30 02/08/20 04:22 Saline 0.9% IV 20 mls/hr .Q24H DOMINGO Administration Magnesium Sulfate/Dextrose 1 100 mls @ 100 mls/hr 02/08/20 11:45 02/08/20 12:35 gm/ IV Solution IVPB 02/08/20 13:44 100 mls/hr Q1H DOMINGO Administration Iopamidol 30 ml 02/08/20 11:04 Isovue-300 (For Oral Use) PO 02/09/20 11:[address] Scan Lorazepam 0.25 mg 02/08/20 11:00 02/08/20 11:13 Ativan PO 0.25 mg BID@1100,1700 DOMINGO Administration Miscellaneous Information 1 each 02/08/20 10:55 Potassium Per Protocol MISCELLANE DAILY PRN Per Protocol Protocol Miscellaneous Information 1 each 02/08/20 10:55 Magnesium Per Protocol MISCELLANE DAILY PRN Per Protocol Protocol Miscellaneous Information 1 each 02/08/20 11:34 Magnesium Per Protocol MISCELLANE DAILY PRN Per Protocol Protocol Ondansetron HCl 4 mg 02/08/20 00:29 02/08/20 09:13 Zofran IVP 4 mg Q8HR PRN Administration Nausea Potassium Chloride 10 meq 02/08/20 09:00 K-Dur 10 PO DAILY PRN TAKE WITH LASIX Prochlorperazine Maleate 10 mg 02/08/20 00:27 Compazine PO Q6H PRN Nausea Senna/Docusate Sodium 1 each 02/08/20 20:00 Senokot-S PO HS@1999 [facility] Tramadol HCl 50 mg 02/08/20 08:00 02/08/20 09:12 Ultram PO 50 mg TID@0800,1400,1999 DOMINGO Administration Intake and Output 02/07/20 02/08/20 02/08/20 22:59 06:59 14:59 Output Total 1100 1950 Balance -1100 -1950 Output: Urine 1100 1950 Other: Voiding Method Bedpan Weight 68.039 kg 68.039 kg 68.039 kg Patient Weight 02/09/20 06:59 Weight 68.039 kg 02/08/20 10:05 02/08/20 10:05
[2020-02-08] MEDS ORDERED: HYDROcodone/APAP 5-325MG 1 EACH TAB PO PRN (14:35)
[2020-02-08] MEDS ORDERED: ALBUTEROL NEBULIZED 2.5 MG/3 ML INHALATION PRN (14:37)
--- NOTE | 2020-02-08 15:17 | HP ---
HISTORY AND PHYSICAL DATE OF SERVICE: 02/08/2020 CHIEF COMPLAINT: Shortness of breath and abdominal distention. HISTORY OF PRESENT ILLNESS: This is a 74-year-old woman with a past medical history of multiple medical problems including history of stage IV colon cancer with METS, hypertension, history of tonsillectomy, being followed by Dr. Vern Bhakta in the outpatient setting, receiving chemotherapy. The patient was complaining of increased shortness of breath. The patient multiple paracentesis previously. Patient had abdominal distention, patient came to [facility] yesterday. CHF acute exacerbation. Suspect the patient had bilateral pleural effusion. Troponin is elevated at 0.055 and the patient admitted for further evaluation. There is no history of fever, chills or rigors. No history of headache, loss of consciousness, seizures. Patient also complained of generalized weakness and tiredness, also. PAST MEDICAL HISTORY: History of colon cancer with METS, hypertension, hysterectomy, tonsillectomy. HOME MEDICATIONS: Reviewed and include: 1. Ultram 50 mg p.o. t.i.d. 2. Senna 1 tablet q.h.s. 3. Compazine 10 mg q.6 p.r.n. 4. K-Dur 10 mEq p.o. daily. 5. Zofran 48 mg q.h.s. 6. Ativan 0.25 mg b.i.d. 7. Lasix 20 mg daily. 8. Pepcid AC 10 mg p.o. daily. 9. Ventolin 2 puffs q.6 p.r.n. ALLERGIES: None. FAMILY HISTORY: History of cancer in the family. SOCIAL HISTORY: History of smoking. No history of current smoking or alcohol. REVIEW OF SYSTEMS: ENT: No diminished hearing or vision. CARDIOVASCULAR: As mentioned earlier. RESPIRATION: As mentioned earlier. GI: As mentioned earlier. : No dysuria. NERVOUS SYSTEM: No numbness or weakness. ALLERGY/IMMUNOLOGY: As mentioned earlier. MUSCULOSKELETAL: As mentioned earlier. HEMATOLOGY/ONCOLOGY: As mentioned earlier. ENDOCRINE: No history of diabetes or hypothyroidism. CONSTITUTIONAL: As mentioned earlier. DERMATOLOGY: Negative. RHEUMATOLOGY: Negative. PSYCHIATRY: As mentioned earlier. PHYSICAL EXAMINATION: Alert oriented x3, pulse 105, blood pressure 110/72, respirations 16, temperature 97.6, pulse ox 94% on 2 L. HEENT: Conjunctivae normal. Oral mucosa moist. NECK: No jugular venous distention. No lymph node enlargement. CARDIOVASCULAR: S1, S2. No S3, no S4. RESPIRATION: Breath sounds diminished at the bases. A few scattered rhonchi, no crackles. ABDOMEN: Soft, mild diffuse distention present. Mild diffuse discomfort on palpation. No guarding. No rigidity. Ascites present. Abdominal wall edema present. LEGS: Bilateral leg edema, erythema also present. NERVOUS SYSTEM: Higher functions as mentioned earlier. Moves all 4 limbs. No focal motor deficits. LYMPHATICS: No lymph node enlargement in the neck or axillae. JOINTS: No active deformity. LABS: WBC is 22.2, hemoglobin is 8.6, sodium 134, potassium 3 and calcium is 8.2, total bilirubin is 2.7 and alkaline phosphatase is 460 and troponin 0.055. Albumin is 2.4. ASSESSMENT: 1. Shortness of breath, possibly congestive heart failure acute exacerbation with possible acute diastolic dysfunction, ejection fraction unknown. 2. Troponin 0.055 indeterminate, possibly type 2 myocardial infarction. 3. Ascites secondary to malignancy, recurrent. 4. Colon cancer stage IV with METS in the liver. 5. Hyponatremia. 6. Hypokalemia. 7. Elevated bilirubin secondary to hepatic METS. 8. Increased AST. 9. Increased alkaline phosphatase. 10.Hypoalbuminemia with mild protein calorie malnutrition. 11.Bilateral leg swelling and leg cellulitis. 12.Anemia, secondary to malignancy. 13.Increased WBC, multifactorial. 14.History of hypertension. 15.Hysterectomy. 16.History of tonsillectomy. 17.History of anxiety, depression. 18.Remote history of nicotine dependence. 19.Elevated D-dimer without any evidence of any pulmonary embolism. RECOMMENDATION: In this 74-year-old woman who presented with multiple medical issues, at this time I recommend to continue the current medications, symptomatic treatment. Otherwise, continue with Lasix and we will obtain the PT, INR and otherwise I would recommend resume the home medications, empiric antibiotics. Overall prognosis guarded because of multiple complex medical issues. Further recommendations to follow. Repeat labs are ordered. Discussed with the patient's family, understands and agrees. Will replace potassium. MMODL / IJN: [id number] /
--- NOTE | 2020-02-08 16:35 | P.CONS ---
History of Present Illness - Reason for Consult Consult date: 02/08/20 Metastatic COlon Cancer Requesting physician: Wilmer Soria - Chief Complaint SOB - History of Present Illness Ms Dowd he is a pleasant white female, in overall good health and baseline. The patient had developed some vague abdominal complaints, with bloating, upper abdominal discomfort and nausea off and on since about 08/07. These were apparently minor initially and the patient was able to continue working until 10/05. At that time due to progression of symptoms she had a CT of the abdomen done without contrast on 10/12/19. This indicated enlarged subtle hypodense masslike areas within the liver with the largest in the left lobe measuring 6.4 cm and 3.8 cm. MRI was recommended for further workup. No other significant abnormality was seen, other than hepatomegaly. It appears that the patient was not very compliant with follow-up. An MRI was scheduled in 11/05 but the patient did not get that done. She was then admitted to [facility] in early 12/05 because of increasing abdominal pain, nausea, and abdominal distention. MRI on 11/20/19 showed hepatomegaly with multiple hepatic masses involving both lobes, highly suspicious for metastatic disease. There was also an exophytic mass in the upper pole of the left kidney measuring 3.5 x 2.9 x 2.9 cm. The patient underwent a liver biopsy after initial reluctance on 11/21/19. This confirmed metastatic adenocarcinoma consistent with colon primary. CEA was greater than 100. The patient was subsequently discharged and seen for her first office visit on 11/29/19. She has never had a colonoscopy previously. She has noted passage of small amounts of blood per rectum, as well as episodic constipation over the prior 2 months.The patient was started on FOLFOX on 12/19/19, she is responding well evidenced by decreased CEA, although feel her expectations on improvement are unrealistic as she assumed she would be back to work and driving by this time. She presented to hospital with increased shortness of breath. CTA negative for PE but does show increasing pleural effusions and ascites. The past couple weeks have been hard per her daughter at bedside, she is eating less, not moving around or getting out of bed like she was. She complains of peripheral neuropathy as well. Review of Systems A 14 point review of systems assessed and completed and all negative except HPI Past Medical History Past Medical History: Cancer, Hypertension Additional Past Medical History / Comment(s): NEW DX OF STAGE 4 COLON CANCER WITH METS. NO RX FOR HTN History of Any Multi-Drug Resistant Organisms: None Reported Past Surgical History: Hysterectomy, Tonsillectomy Additional Past Surgical History / Comment(s): PARACENTISIS, port placement Past Anesthesia/Blood Transfusion Reactions: No Reported Reaction Past Psychological History: Anxiety, Depression Smoking Status: Former smoker Past Alcohol Use History: None Reported Additional Past Alcohol Use History / Comment(s): QUIT SMOKING 2016 Past Drug Use History: None Reported - Past Family History Mother Family Medical History: Cancer Medications and Allergies Home Medications Medication Instructions Recorded Confirmed Type LORazepam [Ativan] 0.25 mg PO BID@1100,1700 12/01/19 02/07/20 History traMADol HCl [Ultram] 50 mg PO TID@0800,1400,199912/01/19 02/07/20 History Albuterol Sulfate [Ventolin HFA] 2 puff INHALATION RT-Q6H PRN 02/07/20 02/07/20 History Famotidine [Pepcid AC] 10 mg PO DAILY@0800 02/07/20 02/07/20 History Furosemide [Lasix] 20 mg PO DAILY PRN 02/07/20 02/07/20 History Ondansetron [Zofran ODT] 4 - 8 mg PO Q6H PRN 02/07/20 02/07/20 History Potassium Chloride ER [K-Dur 10] 10 meq PO DAILY PRN 02/07/20 02/07/20 History Prochlorperazine [Compazine] 10 mg PO Q6H PRN 02/07/20 02/07/20 History Sennosides/Docusate Sodium 1 tab PO HS@199902/07/20 02/07/20 History [Senna-Plus Tablet] Allergies Allergy/AdvReac Type Severity Reaction Status Date / Time No Known Allergies Allergy Verified 02/07/20 21:20 Physical Exam Vitals: Vital Signs Temp Pulse Pulse Resp BP BP Pulse Ox 02/08/20 12:45 97.5 F L 101 H 17 111/65 92 L 02/08/20 07:00 97.6 F 105 H 16 120/72 95 02/08/20 02:05 98.1 F 104 H 16 100/67 97 02/08/20 01:45 78 18 125/77 96 02/07/20 22:41 102 H 16 126/68 98 02/07/20 22:13 103 H 02/07/20 21:37 99 02/07/20 21:17 98.5 F 107 H 16 120/65 94 L Intake and Output 02/08/20 02/08/20 02/08/20 06:59 14:59 22:59 Intake Total 100 Output Total 1100 1950 Balance -1100 -1850 Intake: Intake, IV Titration 100 Amount Magnesium Sulfate-D5w Pmx 100 1 gm In Dextrose/Water 1 100ml.bag @ 100 mls/hr IVPB Q1H [facility] Rx#: [id number] Output: Urine 1100 1950 Other: Voiding Method Bedpan Weight 68.039 kg 68.039 kg Gen: Alert, Oriented, poor historian Neck: Supple Skin: mild jaundice Mouth: no sores or erythema Lungs: Diminished bibasiliar, no increased effort Abdomen: Soft: Evidence ascites, distended Ext: BLE edema and erythema ble to knee from ankles Psych: Anxious and poorly interpretting discussion Results CBC & Chem 7: 02/08/20 10:05 02/08/20 10:05 Labs: Abnormal Lab Results - Last 24 Hours (Table) 02/07/20 02/07/20 02/07/20 Range/Units 22:11 22:11 22:11 WBC 36.0 H (3.8-10.6) k/uL RBC 2.68 L (3.80-5.40) m/uL Hgb 8.3 L (11.4-16.0) gm/dL Hct 26.2 L (34.0-46.0) % RDW 22.0 H (11.5-15.5) % Neutrophils # (1.3-7.7) k/uL Neutrophils # (Manual) 33.80 H (1.3-7.7) k/uL Lymphocytes # (1.0-4.8) k/uL Lymphocytes # (Manual) 0.72 L (1.0-4.8) k/uL Metamyelocytes # (Man) 0.72 H (0) k/uL Myelocytes # (Manual) 0.36 H (0) k/uL Nucleated RBCs 2 H (0-0) /100 WBC D-Dimer 4.01 H (<0.60) mg/L FEU Sodium 133 L (137-145) mmol/L Potassium (3.5-5.1) mmol/L Chloride (98-107) mmol/L Carbon Dioxide (22-30) mmol/L Creatinine 0.51 L (0.52-1.04) mg/dL Glucose 104 H (74-99) mg/dL Calcium 8.3 L (8.4-10.2) mg/dL Total Bilirubin 2.4 H (0.2-1.3) mg/dL AST 73 H (14-36) U/L Alkaline Phosphatase 438 H (38-126) U/L Creatine Kinase 22 L (30-135) U/L Troponin I (0.000-0.034) ng/mL Total Protein 4.8 L (6.3-8.2) g/dL Albumin 2.3 L (3.5-5.0) g/dL 02/07/20 02/08/20 02/08/20 Range/Units 22:11 01:44 03:25 WBC (3.8-10.6) k/uL RBC (3.80-5.40) m/uL Hgb (11.4-16.0) gm/dL Hct (34.0-46.0) % RDW (11.5-15.5) % Neutrophils # (1.3-7.7) k/uL Neutrophils # (Manual) (1.3-7.7) k/uL Lymphocytes # (1.0-4.8) k/uL Lymphocytes # (Manual) (1.0-4.8) k/uL Metamyelocytes # (Man) (0) k/uL Myelocytes # (Manual) (0) k/uL Nucleated RBCs (0-0) /100 WBC D-Dimer (<0.60) mg/L FEU Sodium (137-145) mmol/L Potassium (3.5-5.1) mmol/L Chloride (98-107) mmol/L Carbon Dioxide (22-30) mmol/L Creatinine (0.52-1.04) mg/dL Glucose (74-99) mg/dL Calcium (8.4-10.2) mg/dL Total Bilirubin (0.2-1.3) mg/dL AST (14-36) U/L Alkaline Phosphatase (38-126) U/L Creatine Kinase (30-135) U/L Troponin I 0.053 H* 0.055 H* 0.054 H* (0.000-0.034) ng/mL Total Protein (6.3-8.2) g/dL Albumin (3.5-5.0) g/dL 02/08/20 02/08/20 Range/Units 10:05 10:05 WBC 22.3 H (3.8-10.6) k/uL RBC 2.75 L (3.80-5.40) m/uL Hgb 8.6 L (11.4-16.0) gm/dL Hct 26.6 L (34.0-46.0) % RDW 21.9 H (11.5-15.5) % Neutrophils # 20.2 H (1.3-7.7) k/uL Neutrophils # (Manual) (1.3-7.7) k/uL Lymphocytes # 0.9 L (1.0-4.8) k/uL Lymphocytes # (Manual) (1.0-4.8) k/uL Metamyelocytes # (Man) (0) k/uL Myelocytes # (Manual) (0) k/uL Nucleated RBCs (0-0) /100 WBC D-Dimer (<0.60) mg/L FEU Sodium 134 L (137-145) mmol/L Potassium 3.0 L (3.5-5.1) mmol/L Chloride 96 L (98-107) mmol/L Carbon Dioxide 31 H (22-30) mmol/L Creatinine 0.51 L (0.52-1.04) mg/dL Glucose 111 H (74-99) mg/dL Calcium 8.2 L (8.4-10.2) mg/dL Total Bilirubin 2.7 H (0.2-1.3) mg/dL AST 74 H (14-36) U/L Alkaline Phosphatase 460 H (38-126) U/L Creatine Kinase (30-135) U/L Troponin I (0.000-0.034) ng/mL Total Protein 5.0 L (6.3-8.2) g/dL Albumin 2.4 L (3.5-5.0) g/dL CT scan - chest: report reviewed Assessment and Plan (1) Cellulitis Current Visit: Yes Status: Acute Code(s): L03.90 - CELLULITIS, UNSPECIFIED SNOMED Code(s): 004870283 (2) Ascites Current Visit: Yes Status: Acute Code(s): R18.8 - OTHER ASCITES SNOMED Code(s): 851955450 (3) Metastatic colon cancer in female Current Visit: Yes Status: Acute Code(s): C18.9 - MALIGNANT NEOPLASM OF COLON, UNSPECIFIED SNOMED Code(s): 846889254 (4) Peripheral edema Current Visit: Yes Status: Acute Code(s): R60.9 - EDEMA, UNSPECIFIED SNOMED Code(s): 629793700 Plan: Metastatic Colon Cancer: - Currently has pump with 5FU chemotherapy infusing, this is to be discontinued today and Neulasta on pro administered. - I will discuss with RN's in office regarding this and ask to disconnect for us. - Since neulasta is not on formulary may need to substitute for zarxio daily while inpatient and possibly booster injections in office next week. - Currently on cycle 4 Increased SOB: - Likely secondary to her fluid shift from pleural effusions and ascites - Decreased appetite and decreased po protein intake - Dieticien to be consulted Abdominal Ascites: - Appears worsening will ask IR to perform therapeutic and diagnostic paracentesis while inpatient BLE Edema and erythema: - Likely from increased edema and wax and waning of edema, although warm to touch an underlying superficial cellulitis can not be excluded. - COntinue on IV antibiotics - Assess via doppler for DVTs Decreased Activity and increased generalized fatigue/weakness: - PT/OT while admitted - COntinue with Palliative care services at discharge which includes PT/OT Decreased PO intake/Protein Intake: - Supplementation po shakes/ensure - Cattle Manager to evaluate
[2020-02-08] MEDS: POTASSIUM CHLORIDE 20 MEQ in WATER FOR INJECTION 1 100ML.BAG IVPB SCH ×2 (19:04→20:43)
[2020-02-08] MEDS: SENNOSIDES-DOCUSATE SODIUM 1 EACH TAB PO SCH (20:42)
[2020-02-08] MEDS: HEPARIN SODIUM,PORCINE 5,000 UNIT/ML 1 ML VIAL SQ SCH (20:43)
[2020-02-08] MEDS: GABAPENTIN 100 MG CAP PO SCH (22:10)
[2020-02-09] MEDS: FUROSEMIDE 10 MG/ML 4 ML VIAL IV SCH ×3 (00:44→17:55)
[2020-02-09] MEDS: SODIUM CHLORIDE 0.9% 1,000 ML IV SCH (00:44)
[2020-02-09] MEDS: POTASSIUM CHLORIDE 10 MEQ in WATER FOR INJECTION 1 100ML.BAG IVPB SCH ×2 (02:31→03:32)
[2020-02-09 07:30] LABS: Anisocytosis Moderate; Basophils # (A) 0.1 k/uL (0-0.2); Basophils % (A) 1 %; Eosinophils # (A) 0.1 k/uL (0-0.7); Eosinophils % (A) 1 %; HCT 25.7 % (34.0-46.0); HGB 8.1 gm/dL (11.4-16.0); Hypochromasia Slight; Lymphocytes # (A) 0.9 k/uL (1.0-4.8); Lymphocytes % (A) 9 %; MCH 29.8 pg (25.0-35.0); MCHC 31.5 g/dL (31.0-37.0); MCV 94.6 fL (80.0-100.0); Macrocytosis Slight; Mean Platelet Volume 8.4; Monocytes # (A) 0.4 k/uL (0-1.0); Monocytes % (A) 5 %; Neutrophils # (A) 7.9 k/uL (1.3-7.7); Neutrophils % (A) 84 %; Platelet Count 195 k/uL (150-450); RBC 2.72 m/uL (3.80-5.40); RDW 21.3 % (11.5-15.5); WBC 9.4 k/uL (3.8-10.6)
[2020-02-09 07:48] LABS: ALT 18 U/L (4-34); AST 67 U/L (14-36); African American GFR (CKD) >90 (>60 ml/min/1.73 sqM); Albumin 2.4 g/dL (3.5-5.0); Alkaline Phosphatase 436 U/L (38-126); Anion Gap 4 mmol/L; Blood Urea Nitrogen 12 mg/dL (7-17); Calcium 7.5 mg/dL (8.4-10.2); Carbon Dioxide 36 mmol/L (22-30); Chloride 93 mmol/L (98-107); Glucose 85 mg/dL (74-99); Magnesium 1.9 mg/dL (1.6-2.3); Non-African American GFR(CKD) >90 (>60 ml/min/1.73 sqM); Potassium 3.9 mmol/L (3.5-5.1); Sodium 133 mmol/L (137-145); Total Bilirubin 2.6 mg/dL (0.2-1.3); Total Protein 4.8 g/dL (6.3-8.2)
[2020-02-09] MEDS: FAMOTIDINE 20 MG TAB PO SCH (08:20)
[2020-02-09] MEDS: traMADol 50 MG TAB PO SCH ×3 (08:20→21:59)
[2020-02-09] MEDS: PANTOPRAZOLE 40 MG TABLET PO SCH (08:20)
[2020-02-09] MEDS: GABAPENTIN 100 MG CAP PO SCH ×3 (08:20→21:59)
[2020-02-09] MEDS: LORazepam 0.5 MG TAB PO SCH ×2 (08:57→17:55)
--- NOTE | 2020-02-09 10:00 | ECHOF ---
Referral Reason:sob trop leak MEASUREMENTS -------- HEIGHT: 162.6 cm WEIGHT: 68.0 kg BP: RVIDd: 3.6 cm (< 3.3) IVSd: 1.3 cm (0.6 - 1.1) LVIDd: 4.2 cm (3.9 - 5.3) LVPWd: 1.4 cm (0.6 - 1.1) IVSs: 1.5 cm LVIDs: 2.7 cm LVPWs: 1.4 cm LA Diam: 3.7 cm (2.7 - 3.8) MV E Milton: 0.88 m/s MV DecT: 172 ms MV A Milton: 0.99 m/s MV E/A Ratio: 0.89 RAP: 5.00 mmHg RVSP: 51.79 mmHg FINDINGS -------- Sinus rhythm. This was a technically adequate study. The left ventricular size is normal. There is mild concentric left ventricular hypertrophy. Overa ll left ventricular systolic function is low-normal with, an EF between 50 - 55 %. Inferior Hypokin esis The right ventricle is normal in size. The left atrial size is normal. The right atrial size is normal. There is mild aortic valve sclerosis. There is no evidence of aortic regurgitation. The mitral valve leaflets are mildly thickened. [id number] mitral regurgitation is present. Mild tricuspid regurgitation present. There is moderate pulmonary hypertension. Trace/mild (physiologic) pulmonic regurgitation. The aortic root size is normal. There is no pericardial effusion. Large Pleural Effusion. CONCLUSIONS -------- 1. Sinus rhythm. 2. This was a technically adequate study. 3. The left ventricular size is normal. 4. There is mild concentric left ventricular hypertrophy. 5. Overall left ventricular systolic function is low-normal with, an EF between 50 - 55 %. 6. Inferior Hypokinesis 7. The right ventricle is normal in size. 8. The left atrial size is normal. 9. The right atrial size is normal. 10. There is mild aortic valve sclerosis. 11. The mitral valve leaflets are mildly thickened. 12. Njti-le-qglazbvh mitral regurgitation is present. 13. Mild tricuspid regurgitation present. 14. There is moderate pulmonary hypertension. 15. Trace/mild (physiologic) pulmonic regurgitation. 16. There is no pericardial effusion. 17. Large Pleural Effusion. [employer] OPERATOR: Brigida Jaimes RDCS
--- NOTE | 2020-02-09 10:23 | US ---
Ultrasound-guided paracentesis. DATE OF EXAM: 02/09/2020 CLINICAL HISTORY: Ascites The procedure was discussed with the patient. The risks, complications, benefits, and alternatives we re discussed and any questions were answered. Informed consent was obtained. The patient was placed s upine on the ultrasound table and prepped and draped in the usual sterile fashion. The patient has only a very small amount of fluid in the patient refused the procedure. IMPRESSION: 1. Patient deferred procedure
[2020-02-09] MEDS: HEPARIN SODIUM,PORCINE 5,000 UNIT/ML 1 ML VIAL SQ SCH ×2 (13:26→22:00)
--- NOTE | 2020-02-09 15:06 | P.PN ---
Subjective Progress Note Date: 02/09/20 Principal diagnosis: Metastatic Colon Cancer She went down for paracentesis but apparently has refused procedure. Objective - Vital Signs Vital signs: Vital Signs Temp 97.4 F L 02/09/20 12:45 Pulse 79 02/09/20 12:45 Resp 17 02/09/20 12:45 BP 103/67 02/09/20 12:45 Pulse Ox 96 02/09/20 12:45 Intake & Output 02/08/20 02/09/20 02/09/20 18:59 06:59 18:59 Intake Total 100 1280 Output Total 1950 600 Balance -1850 680 Weight 68.039 kg Intake: Intake, IV Titration 100 330 Amount Magnesium Sulfate-D5w Pmx 100 1 gm In Dextrose/Water 1 100ml.bag @ 100 mls/hr IVPB Q1H [facility] Rx#: [id number] Potassium Chloride 20 meq 200 In Water For Injection 1 100ml.bag @ 50 mls/hr IVPB Q2H [facility] Rx#: [id number] Sodium Chloride 0.9% 1, 80 000 ml @ 20 mls/hr IV . Q24H [facility] Rx#:[id number] ceFAZolin 2 gm In Sodium 50 Chloride 0.9% 50 ml @ 100 mls/hr IVPB Q8HR [facility] Rx# :[id number] Oral 950 Output: Urine 1950 600 Other: Voiding Method Bedpan Bedpan # Voids 2 - Exam Gen: Alert, Oriented, poor historian Neck: Supple Skin: mild jaundice Mouth: no sores or erythema Lungs: Diminished bibasiliar, no increased effort Abdomen: Soft: Evidence ascites, distended Ext: BLE edema and erythema ble to knee from ankles Psych: Anxious and poorly interpretting discussion - Labs CBC & Chem 7: 02/09/20 06:00 02/09/20 06:00 Labs: Abnormal Lab Results - Last 24 Hours (Table) 02/08/20 02/08/20 02/09/20 Range/Units 10:05 15:55 06:00 RBC 2.72 L (3.80-5.40) m/uL Hgb 8.1 L (11.4-16.0) gm/dL Hct 25.7 L (34.0-46.0) % RDW 21.3 H (11.5-15.5) % Neutrophils # 7.9 H (1.3-7.7) k/uL Lymphocytes # 0.9 L (1.0-4.8) k/uL Sodium (137-145) mmol/L Potassium 3.2 L (3.5-5.1) mmol/L Chloride (98-107) mmol/L Carbon Dioxide (22-30) mmol/L Calcium (8.4-10.2) mg/dL Total Bilirubin (0.2-1.3) mg/dL AST (14-36) U/L Alkaline Phosphatase (38-126) U/L Total Protein (6.3-8.2) g/dL Albumin (3.5-5.0) g/dL Carcinoembryonic Ag >5000.0 H (0.0-4.9) ng/mL 02/09/20 Range/Units 06:00 RBC (3.80-5.40) m/uL Hgb (11.4-16.0) gm/dL Hct (34.0-46.0) % RDW (11.5-15.5) % Neutrophils # (1.3-7.7) k/uL Lymphocytes # (1.0-4.8) k/uL Sodium 133 L (137-145) mmol/L Potassium (3.5-5.1) mmol/L Chloride 93 L (98-107) mmol/L Carbon Dioxide 36 H (22-30) mmol/L Calcium 7.5 L (8.4-10.2) mg/dL Total Bilirubin 2.6 H (0.2-1.3) mg/dL AST 67 H (14-36) U/L Alkaline Phosphatase 436 H (38-126) U/L Total Protein 4.8 L (6.3-8.2) g/dL Albumin 2.4 L (3.5-5.0) g/dL Carcinoembryonic Ag (0.0-4.9) ng/mL Assessment and Plan (1) Cellulitis Current Visit: Yes Status: Acute Code(s): L03.90 - CELLULITIS, UNSPECIFIED SNOMED Code(s): 555123781 (2) Ascites Current Visit: Yes Status: Acute Code(s): R18.8 - OTHER ASCITES SNOMED Code(s): 425104336 (3) Metastatic colon cancer in female Current Visit: Yes Status: Acute Code(s): C18.9 - MALIGNANT NEOPLASM OF COLON, UNSPECIFIED SNOMED Code(s): 804709187 (4) Peripheral edema Current Visit: Yes Status: Acute Code(s): R60.9 - EDEMA, UNSPECIFIED SNOMED Code(s): 727146638 Plan: Metastatic Colon Cancer: - chemo completed 02/07, pump was removed. - Status Post cycle 4 of FOLFOX - CEA was showing improvement although recently drawn and increased again >5000 - Plan for repeat CT scans Chest/Abdomen and pelvis. Soon Increased SOB: - Likely secondary to her fluid shift from pleural effusions and ascites - Decreased appetite and decreased po protein intake - Dieticien following Abdominal Ascites: - Paracentesis was scheduled, patient has refused this today. BLE Edema and erythema: - Likely from increased edema and wax and waning of edema, although warm to touch an underlying superficial cellulitis can not be excluded. - COntinue on IV antibiotics - doppler negative for DVT Decreased Activity and increased generalized fatigue/weakness: - PT/OT while admitted - COntinue with Palliative care services at discharge which includes PT/OT Decreased PO intake/Protein Intake: - Supplementation po shakes/ensure - Vegetable Farm Manager to evaluate PLan: - With hospitalization she is unfortunetly not able to receive the neulasta shot to increase WBC, therefore we will closely monitor and provide neupogen if needed next week in office, she has appointment scheduled with Libia Asencio VARNISH INSPECTOR on Wednesday. Physician Attest: I have completed the full history and physical and agree with above dictation, dictated as a scribe.
--- NOTE | 2020-02-09 16:37 | PN ---
PROGRESS NOTE DATE OF SERVICE: 02/09/2020 This is a 74-year-old woman who was admitted with shortness of breath, possible CHF acute exacerbation, acute diastolic dysfunction, also had ascites secondary to malignancy. The patient had ultrasound of the abdomen and paracentesis cancelled because of insertion fluid. The abdominal ultrasound report shows the patient has only a very small amount of fluid. The patient is being diuresed. Multiple consultants are following the patient closely. PAST MEDICAL HISTORY: Reviewed. REVIEW OF SYSTEMS: CARDIOVASCULAR SYSTEM: No angina. RESPIRATORY: As mentioned earlier. GI: As mentioned earlier. : As mentioned earlier. NERVOUS SYSTEM: No numbness or weakness. CURRENT MEDICATIONS: Reviewed and include: 1. Ione 5 mg. 2. Ventolin. 3. Cefazolin 2 g IV q.8. 4. Pepcid. 5. Lasix. 6. Neurontin. 7. Heparin. 8. Ativan. 9. Replacement protocols Zofran. 10.Protonix. 11.Ultram. Doses are reviewed. PHYSICAL EXAM: Patient is alert, oriented x3. Pulse is 79. Blood pressure 103/69, respiration 17, temperature 97.4, pulse ox 98% on room air. HEENT: Conjunctivae normal. NECK: No jugular venous distension. CARDIOVASCULAR: S1, S2, muffled. RESPIRATORY: Breath sounds diminished at the bases, a few scattered rhonchi, no crackles. ABDOMEN: Soft, nontender. LEGS: No edema. No swelling. NERVOUS SYSTEM: No focal deficits. LABS: WBC is 9.2, hemoglobin is 8.1, sodium 133, potassium is 3.9. The bilirubin is 2.6, AST is 667. ASSESSMENT: 1. Shortness of breath, possible congestive heart failure acute exacerbation with acute diastolic dysfunction, ejection fraction unknown. 2. Troponin 0.05 indeterminate, possible type 2 myocardial infarction. 3. Ascites secondary to malignancy, recurrent. 4. Colon cancer stage IV with METS in the liver. 5. Hyponatremia. 6. Hypokalemia. 7. Elevated bilirubin secondary to hepatic METS. 8. Increased AST. 9. Increased alkaline phosphatase. 10.Hypoalbuminemia with mild protein calorie malnutrition. 11.Bilateral leg swelling and leg cellulitis. 12.Anemia, secondary to malignancy. 13.Increased WBC, multifactorial. 14.History of hypertension. 15.History of hysterectomy. 16.History of tonsillectomy. 17.History of anxiety, depression. 18.Remote history of nicotine dependence. 19.Elevated D-dimer without any evidence of pulmonary embolism. RECOMMENDATION: Recommend to continue current medication, continue to monitor. Symptomatic treatment. Otherwise at this time, I would recommend monitor the lytes closely, monitor bilirubin closely. White count is improved. Continue antibiotics. Ascitic tap has been deferred because of insufficient fluid. Will cautiously continue with the Lasix and monitor fluid/electrolyte balance closely. Limit fluid intake. Prognosis guarded because of multiple complex medical issues. Further recommendations to follow. MMODL / IJN: [id number] /
[2020-02-09] MEDS: SENNOSIDES-DOCUSATE SODIUM 1 EACH TAB PO SCH (21:59)
[2020-02-10] MEDS: FUROSEMIDE 10 MG/ML 4 ML VIAL IV SCH ×3 (00:46→16:57)
[2020-02-10] MEDS: SODIUM CHLORIDE 0.9% 1,000 ML IV SCH (00:49)
[2020-02-10 08:13] LABS: ALT 11 U/L (4-34); AST 57 U/L (14-36); African American GFR (CKD) >90 (>60 ml/min/1.73 sqM); Albumin 2.4 g/dL (3.5-5.0); Alkaline Phosphatase 401 U/L (38-126); Anion Gap 4 mmol/L; Anisocytosis Moderate; Basophils % (A) 0 %; Blood Urea Nitrogen 14 mg/dL (7-17); Calcium 7.3 mg/dL (8.4-10.2); Carbon Dioxide 38 mmol/L (22-30); Chloride 92 mmol/L (98-107); Eosinophils # (A) 0.1 k/uL (0-0.7); Eosinophils % (A) 1 %; Glucose 94 mg/dL (74-99); HCT 22.9 % (34.0-46.0); HGB 7.6 gm/dL (11.4-16.0); Hypochromasia Slight; Lymphocytes # (A) 0.5 k/uL (1.0-4.8); Lymphocytes % (A) 12 %; MCH 31.4 pg (25.0-35.0); MCHC 33.4 g/dL (31.0-37.0); MCV 94.1 fL (80.0-100.0); Macrocytosis Slight; Magnesium 1.7 mg/dL (1.6-2.3); Mean Platelet Volume 7.9; Monocytes # (A) 0.2 k/uL (0-1.0); Monocytes % (A) 5 %; Neutrophils # (A) 3.6 k/uL (1.3-7.7); Neutrophils % (A) 80 %; Non-African American GFR(CKD) >90 (>60 ml/min/1.73 sqM); Platelet Count 218 k/uL (150-450); RBC 2.43 m/uL (3.80-5.40); Sodium 134 mmol/L (137-145); Total Bilirubin 2.6 mg/dL (0.2-1.3); Total Protein 4.8 g/dL (6.3-8.2); WBC 4.5 k/uL (3.8-10.6)
[2020-02-10] MEDS: GABAPENTIN 100 MG CAP PO SCH ×3 (08:27→21:28)
[2020-02-10] MEDS: PANTOPRAZOLE 40 MG TABLET PO SCH (08:27)
[2020-02-10] MEDS: FAMOTIDINE 20 MG TAB PO SCH (08:27)
[2020-02-10] MEDS: traMADol 50 MG TAB PO SCH ×3 (08:27→21:24)
[2020-02-10] MEDS: HEPARIN SODIUM,PORCINE 5,000 UNIT/ML 1 ML VIAL SQ SCH ×2 (08:28→21:28)
[2020-02-10] MEDS ORDERED: Potassium Replacement Protocol 1 EACH MISC MISCELLANE PRN (08:44)
[2020-02-10] MEDS ORDERED: Magnesium Replacement Protocol 1 EACH MISC MISCELLANE PRN (08:44)
--- NOTE | 2020-02-10 11:23 | PN ---
PROGRESS NOTE DATE OF SERVICE: 02/10/2020 This 74-year-old woman who was admitted with shortness of breath, had CHF acute exacerbation. Patient closely monitored. No chest pain. No palpitations. No fever. PHYSICAL EXAMINATION: Alert and oriented x3. Pulse 102, blood pressure 92/70, respiration 14, temperature 98.2, pulse ox 98% on 2 L. HEENT: Conjunctivae normal. Oral mucosa moist. NECK: No jugular venous distention. No lymph node enlargement. CARDIOVASCULAR: S1, S2, muffled. No S3, no S4, RESPIRATORY: Diminished breath sounds at the bases. A few scattered rhonchi. ABDOMEN: Soft, nontender. LEGS: No edema, no swelling. NERVOUS SYSTEM: No focal motor or sensory deficits. LABS: WBC 4.2, hemoglobin 7.7, sodium 134, potassium 3. ASSESSMENT: 1. Shortness of breath, possible congestive heart failure acute exacerbation with acute diastolic dysfunction, ejection fraction unknown. 2. Troponin 0.05, indeterminate. Possible type 2 myocardial infarction. 3. Ascites secondary to malignancy, recurrent and congestive heart failure, improving. 4. Colon cancer stage IV with metastasis to the liver. 5. Hyponatremia. 6. Hypokalemia. 7. Elevated bilirubin secondary to hepatic mass. 8. Increased AST. 9. Increased alkaline phosphatase. 10.Hypoalbuminemia with mild protein calorie malnutrition. 11.Bilateral leg swelling and leg cellulitis. 12.Anemia, secondary to malignancy. 13.Increased WBC, multifactorial. 14.History of hypertension. 15.History of hysterectomy. 16.History of tonsillectomy. 17.History of anxiety, depression. 18.Remote history of nicotine dependence. 19.Elevated D-dimer without any evidence of pulmonary embolism. RECOMMENDATIONS AND DISCUSSION: I recommend to continue current medications, symptomatic treatment. Otherwise, we will follow the replacement protocols. Continue the current medication. Increase ambulation. Guarded prognosis. Further recommendations to follow. Probably discharge in the next 24-48 hours if stable. MMODL / IJN: [id number] / MTDD
[2020-02-10] MEDS: LORazepam 0.5 MG TAB PO SCH ×2 (12:01→16:57)
[2020-02-10] MEDS: POTASSIUM CHLORIDE ER 20 MEQ TAB.ER PO SCH ×2 (12:13→15:22)
[2020-02-10] MEDS: ONDANSETRON 4 MG/2 ML VIAL IVP PRN (12:13)
[2020-02-10] MEDS: SENNOSIDES-DOCUSATE SODIUM 1 EACH TAB PO SCH (21:28)
[2020-02-11] MEDS: SODIUM CHLORIDE 0.9% 1,000 ML IV SCH (00:05)
[2020-02-11] MEDS: FUROSEMIDE 10 MG/ML 4 ML VIAL IV SCH ×3 (00:05→15:53)
[2020-02-11 08:26] LABS: Albumin 2.3 g/dL (3.5-5.0); Anion Gap 2 mmol/L; Carbon Dioxide 39 mmol/L (22-30); Chloride 93 mmol/L (98-107); Glucose 95 mg/dL (74-99); Sodium 134 mmol/L (137-145); Total Protein 4.6 g/dL (6.3-8.2)
[2020-02-11 08:27] LABS: ALT 7 U/L (4-34); AST 54 U/L (14-36); African American GFR (CKD) >90 (>60 ml/min/1.73 sqM); Alkaline Phosphatase 385 U/L (38-126); Blood Urea Nitrogen 15 mg/dL (7-17); Calcium 7.2 mg/dL (8.4-10.2); Magnesium 1.5 mg/dL (1.6-2.3); Non-African American GFR(CKD) >90 (>60 ml/min/1.73 sqM); Total Bilirubin 2.4 mg/dL (0.2-1.3)
[2020-02-11 08:33] LABS: Anisocytosis Moderate; Basophils % (A) 1 %; Eosinophils % (A) 1 %; HCT 21.2 % (34.0-46.0); Hypochromasia Slight; Lymphocytes # (A) 0.5 k/uL (1.0-4.8); Lymphocytes % (A) 18 %; MCH 30.3 pg (25.0-35.0); MCHC 31.7 g/dL (31.0-37.0); MCV 95.8 fL (80.0-100.0); Macrocytosis Slight; Mean Platelet Volume 7.6; Monocytes # (A) 0.1 k/uL (0-1.0); Monocytes % (A) 4 %; Neutrophils % (A) 76 %; Platelet Count 213 k/uL (150-450); RBC 2.21 m/uL (3.80-5.40); WBC 2.6 k/uL (3.8-10.6)
[2020-02-11 08:39] LABS: Potassium 2.7 mmol/L (3.5-5.1)
[2020-02-11 08:49] LABS: HGB 6.7 gm/dL (11.4-16.0)
[2020-02-11] MEDS: FAMOTIDINE 20 MG TAB PO SCH (08:50)
[2020-02-11] MEDS: GABAPENTIN 100 MG CAP PO SCH ×3 (08:50→21:23)
[2020-02-11] MEDS: HEPARIN SODIUM,PORCINE 5,000 UNIT/ML 1 ML VIAL SQ SCH ×2 (08:51→19:45)
[2020-02-11] MEDS: traMADol 50 MG TAB PO SCH ×3 (08:51→19:43)
[2020-02-11] MEDS: PANTOPRAZOLE 40 MG TABLET PO SCH (08:51)
[2020-02-11] MEDS: POTASSIUM CHLORIDE 20 MEQ in WATER FOR INJECTION 1 100ML.BAG IVPB SCH ×3 (10:13→16:57)
[2020-02-11] MEDS: LORazepam 0.5 MG TAB PO SCH ×2 (12:28→17:00)
[2020-02-11] MEDS: MAGNESIUM SULFATE-D5W PMX 1 GM in DEXTROSE/WATER 1 100ML.BAG IVPB SCH ×2 (12:38→18:10)
--- NOTE | 2020-02-11 14:51 | P.PN ---
Subjective Progress Note Date: 02/11/20 Principal diagnosis: This is a 74-year-old female who was recently admitted with multiple medical conditions including congestive heart failure and COPD acute exacerbation and is being closely monitored. Patient also has a history of colon cancer stage IV with metastasis to the liver and oncology following. Patient's potassium this morning was found to be 2.7 and currently being replaced. Magnesium was also low at 1.5. Patient's hemoglobin today is 6.7 and awaiting to receive a unit of PRBCs. Currently patient denies any chest pain, shortness of breath, or palpitations. Patient is afebrile. No reports of nausea or vomiting and patient is tolerating diet. Patient continues to be weak and fatigued and also was found to have some mild abdominal distention but denies any abdominal discomfort at this time. Patient states she has a history of becoming constipated often and currently has Senokot ordered. Objective - Vital Signs Vital signs: Vital Signs Temp 97.9 F 02/11/20 14:36 Pulse 94 02/11/20 14:36 Resp 12 02/11/20 14:36 BP 98/53 02/11/20 14:36 Pulse Ox 94 L 02/11/20 14:36 Intake & Output 02/10/20 02/11/20 02/11/20 18:59 06:59 18:59 Intake Total 50 290 900 Output Total 800 500 Balance 50 -510 400 Weight 57.5 kg 56.5 kg Intake: Intake, IV Titration 50 290 Amount Sodium Chloride 0.9% 1, 240 000 ml @ 20 mls/hr IV . Q24H [facility] Rx#:[id number] ceFAZolin 2 gm In Sodium 50 50 Chloride 0.9% 50 ml @ 100 mls/hr IVPB Q8HR [facility] Rx# :[id number] Oral 900 Blood Product 0 Rc As-1 Unit 0 [id number] Output: Urine 800 500 Other: Voiding Method Bedpan Bedpan Toilet Bedside Commode Diaper # Voids 1 2 - Exam Gen: This is a 74-year-old female sitting up in the bed, awake, alert and oriented 3, well-developed, well-nourished. HEENT: Head is atraumatic, normocephalic. Pupils equal, round. Sclerae is anicteric. NECK: Supple. No JVD. No lymphadenopathy. No thyromegaly. LUNGS: Manage breath sounds at the bases with no wheezes or rhonchi. No intercostal retractions. HEART: S1, S2 are muffled. ABDOMEN: Soft. Mildly distended. Bowel sounds are present. No masses. No tenderness. EXTREMITIES: No pedal edema. No calf tenderness. NEUROLOGICAL: Patient is awake, alert and oriented x3. A few slightly week. - Labs CBC & Chem 7: 02/11/20 07:31 02/11/20 07:31 Labs: Abnormal Lab Results - Last 24 Hours (Table) 02/11/20 02/11/20 02/11/20 Range/Units 07: 07: 10:47 WBC 2.6 L (3.8-10.6) k/uL RBC 2.21 L (3.80-5.40) m/uL Hgb 6.7 L* (11.4-16.0) gm/dL Hct 21.2 L (34.0-46.0) % RDW 21.0 H (11.5-15.5) % Lymphocytes # 0.5 L (1.0-4.8) k/uL Sodium 134 L (137-145) mmol/L Potassium 2.7 L* (3.5-5.1) mmol/L Chloride 93 L (98-107) mmol/L Carbon Dioxide 39 H (22-30) mmol/L Creatinine 0.47 L (0.52-1.04) mg/dL Calcium 7.2 L (8.4-10.2) mg/dL Magnesium 1.5 L (1.6-2.3) mg/dL Total Bilirubin 2.4 H (0.2-1.3) mg/dL AST 54 H (14-36) U/L Alkaline Phosphatase 385 H (38-126) U/L Total Protein 4.6 L (6.3-8.2) g/dL Albumin 2.3 L (3.5-5.0) g/dL Crossmatch See Detail Microbiology - Last 24 Hours (Table) 02/08/20 15:55 Blood Culture - Preliminary Blood No Growth after 48 hours Assessment and Plan Assessment: Shortness of breath, possible congestive heart failure acute exacerbation with acute diastolic dysfunction, ejection fraction unknown Troponin 0.05, indeterminate possible type II myocardial infarction Ascites secondary to malignancy, recurrent and congestive heart failure, improving Colon cancer stage IV with metastasis to the liver Hyponatremia Hypokalemia Elevated bilirubin secondary to hepatic mass Increased AST increased alkaline phosphatase Hypoalbuminemia with mild protein calorie malnutrition Bilateral leg swelling and leg cellulitis Anemia, secondary to malignancy Increased WBC, multifactorial History of hypertension next line history of anxiety, depression Remote history of nicotine dependence Elevated d-dimer without any evidence of PE Plan: Continue current medications, management, and symptomatic treatment. Electrolytes currently being replaced and will repeat a.m. labs. Patient awaiting to receive a unit of PRBCs and will monitor hemoglobin closely. Hemoglobin currently 6.7 today. Discussed the patient about increasing activity as tolerated. PT/OT to evaluate the patient. Further recommendations to follow. Possible discharge in 24 hours.
[2020-02-11 14:54] VITALS: BMI 21.4
[2020-02-11] MEDS: SENNOSIDES-DOCUSATE SODIUM 1 EACH TAB PO SCH (19:43)
[2020-02-11] MEDS: ONDANSETRON 4 MG/2 ML VIAL IVP PRN (19:45)
[2020-02-11] MEDS: POTASSIUM CHLORIDE 10 MEQ in WATER FOR INJECTION 1 100ML.BAG IVPB SCH ×2 (21:54→22:51)
[2020-02-12] MEDS: FUROSEMIDE 10 MG/ML 4 ML VIAL IV SCH ×4 (00:25→23:36)
[2020-02-12] MEDS: SODIUM CHLORIDE 0.9% 1,000 ML IV SCH ×2 (03:53→23:36)
[2020-02-12 09:06] LABS: Anisocytosis Slight; Basophils % (A) 0 %; Eosinophils % (A) 1 %; HCT 24.4 % (34.0-46.0); Hypochromasia Slight; Lymphocytes # (A) 0.4 k/uL (1.0-4.8); Lymphocytes % (A) 15 %; MCH 30.8 pg (25.0-35.0); MCV 93.5 fL (80.0-100.0); Macrocytosis Slight; Mean Platelet Volume 7.7; Monocytes # (A) 0.1 k/uL (0-1.0); Monocytes % (A) 4 %; Neutrophils # (A) 2.2 k/uL (1.3-7.7); Neutrophils % (A) 79 %; Platelet Count 165 k/uL (150-450); RBC 2.61 m/uL (3.80-5.40); RDW 19.6 % (11.5-15.5); WBC 2.8 k/uL (3.8-10.6)
[2020-02-12 09:21] LABS: African American GFR (CKD) >90 (>60 ml/min/1.73 sqM); Anion Gap 3 mmol/L; Blood Urea Nitrogen 14 mg/dL (7-17); Calcium 7.5 mg/dL (8.4-10.2); Carbon Dioxide 33 mmol/L (22-30); Chloride 97 mmol/L (98-107); Glucose 88 mg/dL (74-99); Magnesium 1.8 mg/dL (1.6-2.3); Non-African American GFR(CKD) >90 (>60 ml/min/1.73 sqM); Potassium 3.5 mmol/L (3.5-5.1); Sodium 133 mmol/L (137-145)
[2020-02-12] MEDS: GABAPENTIN 100 MG CAP PO SCH ×3 (09:56→21:31)
[2020-02-12] MEDS: HEPARIN SODIUM,PORCINE 5,000 UNIT/ML 1 ML VIAL SQ SCH ×2 (09:57→20:07)
[2020-02-12] MEDS: LORazepam 0.5 MG TAB PO SCH ×2 (11:41→17:06)
--- NOTE | 2020-02-12 11:46 | P.CONS ---
History of Present Illness - Chief Complaint medical debility - History of Present Illness I had the opportunity to see patient for inpatient rehab consultation with regard to medical debility. Admitted to [facility] February 07 with shortness of breath, weakness and abdominal symptoms. Seen by cardiology. Patient known liver cancer with metastatic disease. Chest x-ray demonstrates effusions and atelectasis. Chest CTA negative for PE both ascites and extensive metastatic disease. Venous Doppler negative right and left leg. Patient deferred abdominal ultrasound. OT reports minimal assistance for grooming, upper dressing and bathing and moderate assistance for lower dressing. Comments mobility supervision 40 feet with roller walker. PT prescribed. Previous functional history as elicited from patient: 74-year-old right-handed white female who is lives in one floor home. Patient has been living with a son since September. She is currently on disability and pains in longterm when disability runs out. Prior to 3 months ago was indeed independent. Since then, receiving assistance for bathing. Has not been require an assistive device for gait. PMD Dr. Bhakta. Denies tobacco or alcohol. Family history mother with cancer in father with heart disease. Review of Systems Review of systems: ENT: Denies sneezes or discharge. Eyes: Denies discharge or photophobia. Cardiac: Denies chest pain or palpitation. Pulmonary: Ricardo least mild shortness of breath. Breast: Denies discharge or lumps. Gastrointestinal: Denies nausea, emesis, constipation, diarrhea. Genitourinary: Denies discharge or frequency. Musculoskeletal: Denies muscle or bone aches. Neurologic: Ddecreased strength and endurancege. Endocrine: Denies shakes or sweats. Oncology: Denies cancers. Dermatologic: Denies rash, itching, pruritus. ALLERGY/immunology: Denies sneezes, rashes. Past Medical History Past Medical History: Cancer, Hypertension Additional Past Medical History / Comment(s): NEW DX OF STAGE 4 COLON CANCER WITH METS. NO RX FOR HTN History of Any Multi-Drug Resistant Organisms: None Reported Past Surgical History: Hysterectomy, Tonsillectomy Additional Past Surgical History / Comment(s): PARACENTISIS, port placement Past Anesthesia/Blood Transfusion Reactions: No Reported Reaction Past Psychological History: Anxiety, Depression Smoking Status: Former smoker Past Alcohol Use History: None Reported Additional Past Alcohol Use History / Comment(s): QUIT SMOKING 2016 Past Drug Use History: None Reported - Past Family History Mother Family Medical History: Cancer Medications and Allergies Home Medications Medication Instructions Recorded Confirmed Type LORazepam [Ativan] 0.25 mg PO BID@1100,1700 12/01/19 02/07/20 History traMADol HCl [Ultram] 50 mg PO TID@0800,1400,199912/01/19 02/07/20 History Albuterol Sulfate [Ventolin HFA] 2 puff INHALATION RT-Q6H PRN 02/07/20 02/07/20 History Famotidine [Pepcid AC] 10 mg PO DAILY@0800 02/07/20 02/07/20 History Furosemide [Lasix] 20 mg PO DAILY PRN 02/07/20 02/07/20 History Ondansetron [Zofran ODT] 4 - 8 mg PO Q6H PRN 02/07/20 02/07/20 History Potassium Chloride ER [K-Dur 10] 10 meq PO DAILY PRN 02/07/20 02/07/20 History Prochlorperazine [Compazine] 10 mg PO Q6H PRN 02/07/20 02/07/20 History Sennosides/Docusate Sodium 1 tab PO HS@199902/07/20 02/07/20 History [Senna-Plus Tablet] Allergies Allergy/AdvReac Type Severity Reaction Status Date / Time No Known Allergies Allergy Verified 02/07/20 21:20 Physical Exam Vitals: Vital Signs Temp Pulse Pulse Resp BP BP Pulse Ox 02/12/20 08:00 104 H 18 02/12/20 05:08 98.2 F 18 111/60 92 L 02/11/20 19:32 97.9 F 104 H 16 96/54 94 L 02/11/20 18:07 97.8 F 89 12 97/53 93 L 02/11/20 15:16 97.6 F 89 12 94/53 95 02/11/20 14:46 98.1 F 90 12 101/54 94 L 02/11/20 14:36 97.9 F 94 12 98/53 94 L 02/11/20 12:54 98.8 F 98 16 99/61 91 L Intake and Output 02/11/20 02/12/20 02/12/20 22:59 06:59 14:59 Intake Total 310 160 Balance 310 160 Intake: Intake, IV Titration 160 Amount Sodium Chloride 0.9% 1, 160 000 ml @ 20 mls/hr IV . Q24H [facility] Rx#:[id number] Blood Product 310 Rc As-1 Unit 310 [id number] Other: Voiding Method Toilet Toilet Bedside Commode Bedside Commode Diaper Diaper # Voids 1 2 2 # Bowel Movements 1 Weight 56.5 kg Skin: atrophic, intact. General: thin build and comfortable appearance. Head: Normocephalic, atraumatic. Eyes: Symmetric. Pupils equal round. Ears: Symmetric. Hearing within normal limits. Mouth: Clear. Neck: Supple. Carotid without bruit. Cardiac: Regular rate and rhythm. Lungs: Clear anteriorly and posteriorly. Abdomen: Soft active nontender. Extremities: Normal tone. Neurological: Mental status: Alert, cooperative, pleasant. Cranial nerves: Symmetric facial tone and trapezius. Motor: active movement all 4 limbs. Sensation: Intact throughout. DTRs: Symmetric and equal throughout. Mobility: requires standby assist to 5% minimal assist for gait and room which in fact was provided by daughter after my examination. Results CBC & Chem 7: 02/12/20 07:49 02/12/20 07:49 Labs: Abnormal Lab Results - Last 24 Hours (Table) 02/11/20 02/11/20 02/12/20 Range/Units 10:47 20:15 07:49 WBC 2.8 L (3.8-10.6) k/uL RBC 2.61 L (3.80-5.40) m/uL Hgb 8.0 L (11.4-16.0) gm/dL Hct 24.4 L (34.0-46.0) % RDW 19.6 H (11.5-15.5) % Lymphocytes # 0.4 L (1.0-4.8) k/uL Sodium (137-145) mmol/L Potassium 3.3 L (3.5-5.1) mmol/L Chloride (98-107) mmol/L Carbon Dioxide (22-30) mmol/L Creatinine (0.52-1.04) mg/dL Calcium (8.4-10.2) mg/dL Crossmatch See Detail 02/12/20 Range/Units 07:49 WBC (3.8-10.6) k/uL RBC (3.80-5.40) m/uL Hgb (11.4-16.0) gm/dL Hct (34.0-46.0) % RDW (11.5-15.5) % Lymphocytes # (1.0-4.8) k/uL Sodium 133 L (137-145) mmol/L Potassium (3.5-5.1) mmol/L Chloride 97 L (98-107) mmol/L Carbon Dioxide 33 H (22-30) mmol/L Creatinine 0.38 L (0.52-1.04) mg/dL Calcium 7.5 L (8.4-10.2) mg/dL Crossmatch Microbiology - Last 24 Hours (Table) 02/08/20 15:55 Blood Culture - Preliminary Blood No Growth after 72 hours Assessment and Plan (1) Metastatic colon cancer in female Current Visit: Yes Status: Acute Code(s): C18.9 - MALIGNANT NEOPLASM OF COLON, UNSPECIFIED SNOMED Code(s): 729756121 Plan: impression: 1. Medical debility. 2. Metastatic liver and/or colon Cancer with ascites. 3. Hypertension. Comments and plan: At this time OT ongoing in PT prescribed. Insurance will require multidisciplinary team necessity for inpatient rehab. Thus require PT notes and for notes to describe minimal assistance for functional mobility.
[2020-02-12] MEDS ORDERED: POTASSIUM CHLORIDE ER 20 MEQ TAB.ER PO STA (12:00)
[2020-02-12] MEDS: traMADol 50 MG TAB PO SCH ×3 (12:13→20:07)
[2020-02-12] MEDS: PANTOPRAZOLE 40 MG TABLET PO SCH (12:16)
[2020-02-12] MEDS: FAMOTIDINE 20 MG TAB PO SCH (12:16)
--- NOTE | 2020-02-12 15:26 | P.PN ---
Subjective Progress Note Date: 02/12/20 Principal diagnosis: CHF/COPD exacerbation. Metastatic colon cancer status post 4 cycles of chemo. Patient did miss her G-CSF administration In follow-up today patient is feeling a bit better, her ascites is decreased, no fevers, shortness of breath, chest pain, abdominal pain or cramping, legs are still swollen but improved. Objective - Vital Signs Vital signs: Vital Signs Temp 97.6 F 02/12/20 13:00 Pulse 94 02/12/20 13:00 Resp 18 02/12/20 13:00 BP 98/58 02/12/20 13:00 Pulse Ox 92 L 02/12/20 05:08 Intake & Output 02/11/20 02/12/20 02/12/20 18:59 06:59 18:59 Intake Total 1210 160 Output Total 500 Balance 710 160 Weight 56.5 kg 56.5 kg Intake: Intake, IV Titration 160 Amount Sodium Chloride 0.9% 1, 160 000 ml @ 20 mls/hr IV . Q24H [facility] Rx#:[id number] Oral 900 Blood Product 310 Rc As-1 Unit 310 [id number] Output: Urine 500 Other: Voiding Method Toilet Toilet Toilet Bedside Commode Bedside Commode Bedside Commode Diaper Diaper Diaper # Voids 2 2 1 # Bowel Movements 1 - Constitutional General appearance: Present: cooperative, mild distress, thin - EENT Eyes: Present: anicteric sclerae, EOMI ENT: Present: hearing grossly normal - Neck Neck: Present: normal ROM. Absent: lymphadenopathy, stridor - Respiratory Respiratory: bilateral: diminished - Cardiovascular Rhythm: regular Heart sounds: normal: S1, S2 Abnormal Heart Sounds: Absent: systolic murmur, diastolic murmur, rub, S3 Gallop, S4 Gallop, click, other - Peripheral edema leg Peripheral Edema: bilateral: 1+, Pitting - Gastrointestinal General gastrointestinal: Present: normal bowel sounds, soft - Neurologic Neurologic: Present: CNII-XII intact - Musculoskeletal Musculoskeletal: Present: generalized weakness - Psychiatric Psychiatric: Present: A&O x's 3, appropriate affect (Mild anxiety), intact judgment & insight - Allied health notes Allied health notes reviewed: PT - Labs CBC & Chem 7: 02/12/20 07:49 02/12/20 07:49 Labs: Abnormal Lab Results - Last 24 Hours (Table) 02/11/20 02/11/20 02/12/20 Range/Units 10:47 20:15 07:49 WBC 2.8 L (3.8-10.6) k/uL RBC 2.61 L (3.80-5.40) m/uL Hgb 8.0 L (11.4-16.0) gm/dL Hct 24.4 L (34.0-46.0) % RDW 19.6 H (11.5-15.5) % Lymphocytes # 0.4 L (1.0-4.8) k/uL Sodium (137-145) mmol/L Potassium 3.3 L (3.5-5.1) mmol/L Chloride (98-107) mmol/L Carbon Dioxide (22-30) mmol/L Creatinine (0.52-1.04) mg/dL Calcium (8.4-10.2) mg/dL Crossmatch See Detail 02/12/20 Range/Units 07:49 WBC (3.8-10.6) k/uL RBC (3.80-5.40) m/uL Hgb (11.4-16.0) gm/dL Hct (34.0-46.0) % RDW (11.5-15.5) % Lymphocytes # (1.0-4.8) k/uL Sodium 133 L (137-145) mmol/L Potassium (3.5-5.1) mmol/L Chloride 97 L (98-107) mmol/L Carbon Dioxide 33 H (22-30) mmol/L Creatinine 0.38 L (0.52-1.04) mg/dL Calcium 7.5 L (8.4-10.2) mg/dL Crossmatch Microbiology - Last 24 Hours (Table) 02/08/20 15:55 Blood Culture - Preliminary Blood No Growth after 72 hours Assessment and Plan (1) Ascites Narrative/Plan: Improved with treatment of comorbid conditions. Current Visit: Yes Status: Acute Priority: Low Code(s): R18.8 - OTHER ASCITES SNOMED Code(s): 786810208 (2) Congestive heart failure Narrative/Plan: Cardiology consult. Medical management. Decreased bilateral lower extremity swelling and abdominal distention. Current Visit: Yes Status: Acute Priority: High Code(s): I50.9 - HEART FAILURE, UNSPECIFIED SNOMED Code(s): 72391866 (3) Metastatic colon cancer in female Narrative/Plan: Patient is status post 4 cycles of palliative FOLFOX. She did miss her growth factor after chemo. Her WBC is 2.8 today, stable, ANC has remained greater than thousand, no need for G-CSF at this time. Current Visit: Yes Status: Chronic Priority: Medium Code(s): C18.9 - MALIGNANT NEOPLASM OF COLON, UNSPECIFIED SNOMED Code(s): 772819688 Plan: There is discussion about the patient participating in rehabilitation. From an Oncology standpoint patient is encouraged to participate in rehabilitation to keep up her strength. Patient will not receive any chemotherapy while actively in rehabilitation. She and her daughter verbalize understanding this.
--- NOTE | 2020-02-12 16:05 | P.PN ---
Subjective Progress Note Date: 02/12/20 Principal diagnosis: This is a 74-year-old female who was recently admitted with multiple medical conditions including congestive heart failure and COPD acute exacerbation and is being closely monitored. Patient also has a history of colon cancer stage IV with metastasis to the liver and oncology following. Patient's potassium this morning was found to be 2.7 and currently being replaced. Magnesium was also low at 1.5. Patient's hemoglobin today is 6.7 and awaiting to receive a unit of PRBCs. Currently patient denies any chest pain, shortness of breath, or palpitations. Patient is afebrile. No reports of nausea or vomiting and patient is tolerating diet. Patient continues to be weak and fatigued and also was found to have some mild abdominal distention but denies any abdominal discomfort at this time. Patient states she has a history of becoming constipated often and currently has Senokot ordered. 02/12/2020 Patient is seen and evaluated and follow-up and was evaluated by Dr. Dunlap for inpatient rehab. Patient continues to be weak requiring assistance and family would like her to go to rehab for continued PT/OT therapy for strength and mobility. Case management and social work following working on possible placement at [facility] if accepting. Patient's repeat potassium today after replacement was 3.5 and magnesium was 1.8. Hemoglobin is stable at 8.0 status post 1 unit of PRBCs yesterday. Will repeat a.m. labs and monitor closely. Currently no reports of chest pain, shortness of breath, or palpitations. Patient is afebrile. No reports of nausea or vomiting and patient is tolerating diet. Objective - Vital Signs Vital signs: Vital Signs Temp 97.6 F 02/12/20 13:00 Pulse 94 02/12/20 13:00 Resp 18 02/12/20 13:00 BP 98/58 02/12/20 13:00 Pulse Ox 92 L 02/12/20 05:08 Intake & Output 02/11/20 02/12/20 02/12/20 18:59 06:59 18:59 Intake Total 1210 160 Output Total 500 Balance 710 160 Weight 56.5 kg 56.5 kg Intake: Intake, IV Titration 160 Amount Sodium Chloride 0.9% 1, 160 000 ml @ 20 mls/hr IV . Q24H [facility] Rx#:[id number] Oral 900 Blood Product 310 Rc As-1 Unit 310 [id number] Output: Urine 500 Other: Voiding Method Toilet Toilet Toilet Bedside Commode Bedside Commode Bedside Commode Diaper Diaper Diaper # Voids 2 2 1 # Bowel Movements 1 - Exam Gen: This is a 74-year-old female sitting up in the chair, awake, alert and oriented 3, well-developed, well-nourished. HEENT: Head is atraumatic, normocephalic. Pupils equal, round. Sclerae is anicteric. NECK: Supple. No JVD. No lymphadenopathy. No thyromegaly. LUNGS: Manage breath sounds at the bases with no wheezes or rhonchi. No in tercostal retractions. HEART: S1, S2 are muffled. ABDOMEN: Soft. Mildly distended. Bowel sounds are present. No masses. No tenderness. EXTREMITIES: No pedal edema. No calf tenderness. NEUROLOGICAL: Patient is awake, alert and oriented x3. A few slightly week. - Labs CBC & Chem 7: 02/12/20 07:49 02/12/20 07:49 Labs: Abnormal Lab Results - Last 24 Hours (Table) 02/11/20 02/11/20 02/12/20 Range/Units 10:47 20:15 07:49 WBC 2.8 L (3.8-10.6) k/uL RBC 2.61 L (3.80-5.40) m/uL Hgb 8.0 L (11.4-16.0) gm/dL Hct 24.4 L (34.0-46.0) % RDW 19.6 H (11.5-15.5) % Lymphocytes # 0.4 L (1.0-4.8) k/uL Sodium (137-145) mmol/L Potassium 3.3 L (3.5-5.1) mmol/L Chloride (98-107) mmol/L Carbon Dioxide (22-30) mmol/L Creatinine (0.52-1.04) mg/dL Calcium (8.4-10.2) mg/dL Crossmatch See Detail 02/12/20 Range/Units 07:49 WBC (3.8-10.6) k/uL RBC (3.80-5.40) m/uL Hgb (11.4-16.0) gm/dL Hct (34.0-46.0) % RDW (11.5-15.5) % Lymphocytes # (1.0-4.8) k/uL Sodium 133 L (137-145) mmol/L Potassium (3.5-5.1) mmol/L Chloride 97 L (98-107) mmol/L Carbon Dioxide 33 H (22-30) mmol/L Creatinine 0.38 L (0.52-1.04) mg/dL Calcium 7.5 L (8.4-10.2) mg/dL Crossmatch Microbiology - Last 24 Hours (Table) 02/08/20 15:55 Blood Culture - Preliminary Blood No Growth after 72 hours Assessment and Plan Assessment: Shortness of breath, possible congestive heart failure acute exacerbation with acute diastolic dysfunction, ejection fraction unknown Troponin 0.05, indeterminate possible type II myocardial infarction Ascites secondary to malignancy, recurrent and congestive heart failure, improving Colon cancer stage IV with metastasis to the liver Hyponatremia Hypokalemia Elevated bilirubin secondary to hepatic mass Increased AST increased alkaline phosphatase Hypoalbuminemia with mild protein calorie malnutrition Bilateral leg swelling and leg cellulitis Anemia, secondary to malignancy Increased WBC, multifactorial History of hypertension next line history of anxiety, depression Remote history of nicotine dependence Elevated d-dimer without any evidence of PE Plan: Continue current medications, management, and symptomatic treatment. Electrolytes currently being replaced and will repeat a.m. labs. Patient's hemoglobin is stable at 8.0 today. Electrolytes within normal limits. Discussed the patient about increasing activity as tolerated. PT/OT recommending rehab for continued PT/OT therapy. Case management and social work following and working on possible placement in ECF for continued PT/OT therapy. Further recommendations to follow. Possible discharge in 24 hours.
[2020-02-12] MEDS: SENNOSIDES-DOCUSATE SODIUM 1 EACH TAB PO SCH (20:07)
--- NOTE | 2020-02-13 00:12 | P.PN ---
Progress Note - Text Progress Note Date: 02/12/20 Presenting complaint: tired Interval history: Per records: This is a 74-year-old female who was recently admitted with multiple medical conditions including congestive heart failure and COPD acute exacerbation and is being closely monitored. Patient also has a history of colon cancer stage IV with metastasis to the liver and oncology following. Today-did go to the the bathroom. Daughter is at bedside. Pain on and off. Intermittent nausea. Does feel tired. Wishing to go to rehab. Review of systems: Was done for constitutional, cardiovascular, GI, pulmonary. relevant finding as above Active Medications Hydrocodone Bitart/Acetaminophen ([place] 5-325) 1 each PO Q6HR PRN PRN Reason: Pain Albuterol Sulfate (Ventolin Nebulized) 2.5 mg INHALATION RT-Q6H PRN PRN Reason: Shortness Of Breath Famotidine (Pepcid) 10 mg PO DAILY@0800 [facility] Last Admin: 02/12/20 12:16 Dose: 10 mg Documented by: Furosemide (Lasix) 40 mg IV Q8H [facility] Last Admin: 02/12/20 23:36 Dose: 40 mg Documented by: Gabapentin (Neurontin) 100 mg PO TID [facility] Last Admin: 02/12/20 21:31 Dose: 100 mg Documented by: Heparin Sodium (Porcine) (Heparin) 5,000 unit SQ Q12HR [facility] Last Admin: 02/12/20 20:07 Dose: 5,000 unit Documented by: Sodium Chloride (Saline 0.9%) 1,000 mls @ 20 mls/hr IV .Q24H [facility] Last Admin: 02/12/20 23:36 Dose: 20 mls/hr Documented by: Cefazolin Sodium 2 gm/ Sodium (Chloride) 50 mls @ 100 mls/hr IVPB Q8HR [facility] Last Admin: 02/12/20 23:36 Dose: 100 mls/hr Documented by: Lorazepam (Ativan) 0.25 mg PO BID@1100,1700 [facility] Last Admin: 02/12/20 17:06 Dose: 0.25 mg Documented by: Miscellaneous Information (Potassium Per Protocol) 1 each MISCELLANE DAILY PRN; Protocol PRN Reason: Per Protocol Miscellaneous Information (Magnesium Per Protocol) 1 each MISCELLANE DAILY PRN; Protocol PRN Reason: Per Protocol Miscellaneous Information (Magnesium Per Protocol) 1 each MISCELLANE DAILY PRN; Protocol PRN Reason: Per Protocol Miscellaneous Information (Potassium Per Protocol) 1 each MISCELLANE DAILY PRN; Protocol PRN Reason: Per Protocol Miscellaneous Information (Potassium Per Protocol) 1 each MISCELLANE DAILY PRN; Protocol PRN Reason: Per Protocol Miscellaneous Information (Magnesium Per Protocol) 1 each MISCELLANE DAILY PRN; Protocol PRN Reason: Per Protocol Miscellaneous Information (Potassium Per Protocol) 1 each MISCELLANE DAILY PRN; Protocol PRN Reason: Per Protocol Ondansetron HCl (Zofran) 4 mg IVP Q8HR PRN PRN Reason: Nausea Last Admin: 02/11/20 19:45 Dose: 4 mg Documented by: Pantoprazole Sodium (Protonix) 40 mg PO AC-BRKFST [facility] Last Admin: 02/12/20 12:16 Dose: 40 mg Documented by: Potassium Chloride (K-Dur 10) 10 meq PO DAILY PRN PRN Reason: TAKE WITH LASIX Last Admin: 02/11/20 08:50 Dose: 10 meq Documented by: Prochlorperazine Maleate (Compazine) 10 mg PO Q6H PRN PRN Reason: Nausea Senna/Docusate Sodium (Senokot-S) 1 each PO HS@2000 [facility] Last Admin: 02/12/20 20:07 Dose: 1 each Documented by: Tramadol HCl (Ultram) 50 mg PO TID@0800,1400,2000 [facility] Last Admin: 02/12/20 20:07 Dose: 50 mg Documented by: On examination: VITAL SIGNS: 97.6, 70, 94, 18, 98/58, 94% on room air GENERAL APPEARANCE: Laying in bed, tired. HEENT: Normal external appearance of nose and ear. Oral cavity normal EYES: Pupils equal. Conjunctiva normal. NECK: JVD not raised. Mass not palpable. RESPIRATORY: Respiratory effort normal. Lungs decreased breath sounds. CARDIOVASCULAR: First and second sounds normal. No edema. ABDOMEN: Soft. Liver and spleen not palpable. No tenderness. No mass palpable. PSYCHIATRY: Alert and oriented x3. Mood and affect a bit low INVESTIGATIONS, reviewed in the clinical context: White count 2.8 hemoglobin 8 patient's 165 potassium 3.5 crit 0.38 Assessment: -Metastatic colon stage IV cancer-on palliative treatment -Essential hypertension -Normocytic anemia of malignancy -Bicytopenia from chemotherapy -Severe hypokalemia corrected -Moderate protein calorie malnutrition from decreased oral intake -Medical debility and -nausea secondary to underlying malignancy -Hypokalemia Plan: Care was discussed length with patient and the daughter the bedside. Also spoke to the returned case inspector. Looking into going to inpatient rehab. Continue current medication treatment plan. Patient getting nausea medications.
[2020-02-13 08:13] LABS: Anisocytosis Slight; Basophils % (A) 1 %; Eosinophils % (A) 1 %; HCT 24.2 % (34.0-46.0); HGB 7.9 gm/dL (11.4-16.0); Hypochromasia Slight; Lymphocytes # (A) 0.4 k/uL (1.0-4.8); Lymphocytes % (A) 12 %; MCH 30.1 pg (25.0-35.0); MCHC 32.6 g/dL (31.0-37.0); MCV 92.4 fL (80.0-100.0); Macrocytosis Slight; Mean Platelet Volume 8.2; Monocytes # (A) 0.2 k/uL (0-1.0); Monocytes % (A) 6 %; Neutrophils # (A) 2.8 k/uL (1.3-7.7); Neutrophils % (A) 78 %; Platelet Count 132 k/uL (150-450); RBC 2.62 m/uL (3.80-5.40); RDW 19.3 % (11.5-15.5); WBC 3.7 k/uL (3.8-10.6)
[2020-02-13 08:29] LABS: African American GFR (CKD) >90 (>60 ml/min/1.73 sqM); Anion Gap 4 mmol/L; Blood Urea Nitrogen 14 mg/dL (7-17); Calcium 7.2 mg/dL (8.4-10.2); Carbon Dioxide 36 mmol/L (22-30); Chloride 94 mmol/L (98-107); Glucose 87 mg/dL (74-99); Magnesium 1.5 mg/dL (1.6-2.3); Non-African American GFR(CKD) >90 (>60 ml/min/1.73 sqM); Potassium 2.9 mmol/L (3.5-5.1); Sodium 134 mmol/L (137-145)
[2020-02-13] MEDS: GABAPENTIN 100 MG CAP PO SCH (09:21)
[2020-02-13] MEDS: HEPARIN SODIUM,PORCINE 5,000 UNIT/ML 1 ML VIAL SQ SCH (09:22)
[2020-02-13] MEDS: PANTOPRAZOLE 40 MG TABLET PO SCH (09:36)
[2020-02-13] MEDS: FUROSEMIDE 10 MG/ML 4 ML VIAL IV SCH (09:36)
[2020-02-13] MEDS: traMADol 50 MG TAB PO SCH ×2 (09:36→14:35)
[2020-02-13] MEDS: FAMOTIDINE 20 MG TAB PO SCH (09:38)
[2020-02-13] MEDS: ONDANSETRON 4 MG/2 ML VIAL IVP PRN (10:59)
[2020-02-13 11:22] VITALS: RESP 18; TEMP 98
[2020-02-13] MEDS: POTASSIUM CHLORIDE ER 20 MEQ TAB.ER PO SCH ×2 (12:19→14:35)
[2020-02-13] MEDS: LORazepam 0.5 MG TAB PO SCH (12:19)
[2020-02-13 13:47] VITALS: BP 96/59
[2020-02-13 16:25] VITALS: PULSE 82
--- NOTE | 2020-02-14 00:59 | P.DS ---
Providers Date of admission: 02/08/20 00:30 Expected date of discharge: 02/13/20 Attending physician: Keo Cheung Consults: 02/08/20 00:25 Consult Physician Routine Consulting Provider: Fahad Mathew Consult Reason/Comments: Metastatic colon cancer, ascites Do you want consulting provider notified?: Yes, Notify in am 02/08/20 06:03 Consult Physician Routine Consulting Provider: Boo Robertson Consult Reason/Comments: elevated troponins Do you want consulting provider notified?: Yes 02/12/20 10:14 Consult Physician Urgent Consulting Provider: Giovanni Koenig Consult Reason/Comments: in patient rehab Do you want consulting provider notified?: Yes Primary care physician: [facility] Course: Presenting complaint: tired Interval history: Per records: This is a 74-year-old female who was recently admitted with multiple medical conditions including congestive heart failure and COPD acute exacerbation and is being closely monitored. Patient also has a history of colon cancer stage IV with metastasis to the liver and oncology following. Today-doing better. eatingdiet. Nausea better.patient oxygen to be a candidate for rehab as he is doing better. pa chemotherapy down the road.discharge planning was discussed with the patient. Also with the social media marketing specialist and the mental health case manager.potassium was replaced today Discussion and discharge planning more than 35 minutes Consultation: Dr. lovett from oncology On examination: VITAL SIGNS: 98, 97, 18, 96/59, GENERAL APPEARANCE: sitting of the bed, looking better. HEENT: Normal external appearance of nose and ear. Oral cavity normal EYES: Pupils equal. Conjunctiva normal. NECK: JVD not raised. Mass not palpable. RESPIRATORY: Respiratory effort normal. Lungs decreased breath sounds. CARDIOVASCULAR: First and second sounds normal. No edema. ABDOMEN: Soft. Liver and spleen not palpable. No tenderness. No mass palpable. PSYCHIATRY: Alert and oriented x3. Mood and affect more cheerful INVESTIGATIONS, reviewed in the clinical context: White count 3.7 hemoglobin 7.9 White count 2.8 hemoglobin 8 patient's 165 potassium 3.5 crit 0.38 Assessment: -Metastatic colon stage IV cancer-on palliative treatment -Essential hypertension -Normocytic anemia of malignancy -Bicytopenia from chemotherapy -Severe hypokalemia corrected -Moderate protein calorie malnutrition from decreased oral intake -Medical debility and -nausea secondary to underlying malignancy -Hypokalemia disposition: Home with home health Patient Condition at Discharge: Undetermined Plan - Discharge Summary Discharge Rx Participant: No New Discharge Prescriptions: New Pantoprazole [Protonix] 40 mg PO AC-BRKFST tablet. HYDROcodone/APAP 5-325MG [[place] 5-325] 1 tab PO Q4HR PRN 3 Days #18 tab PRN Reason: Pain Furosemide [Lasix] 40 mg PO DAILY #30 tablet Continue traMADol HCl [Ultram] 50 mg PO TID@0800,1400,1999 LORazepam [Ativan] 0.25 mg PO BID@1100,1700 Sennosides/Docusate Sodium [Senna-Plus Tablet] 1 tab PO HS@1999 Prochlorperazine [Compazine] 10 mg PO Q6H PRN PRN Reason: Nausea Potassium Chloride ER [K-Dur 10] 10 meq PO DAILY PRN PRN Reason: TAKE WITH LASIX Ondansetron [Zofran ODT] 4 - 8 mg PO Q6H PRN PRN Reason: Nausea Albuterol Sulfate [Ventolin HFA] 2 puff INHALATION RT-Q6H PRN PRN Reason: Shortness Of Breath Famotidine [Pepcid AC] 10 mg PO DAILY@0800 Discontinued Furosemide [Lasix] 20 mg PO DAILY PRN PRN Reason: Edema Discharge Medication List LORazepam [Ativan] 0.25 mg PO BID@1100,1700 12/01/19 [History] traMADol HCl [Ultram] 50 mg PO TID@0800,1400,199912/01/19 [History] Albuterol Sulfate [Ventolin HFA] 2 puff INHALATION RT-Q6H PRN 02/07/20 [History] Famotidine [Pepcid AC] 10 mg PO DAILY@0800 02/07/20 [History] Ondansetron [Zofran ODT] 4 - 8 mg PO Q6H PRN 02/07/20 [History] Potassium Chloride ER [K-Dur 10] 10 meq PO DAILY PRN 02/07/20 [History] Prochlorperazine [Compazine] 10 mg PO Q6H PRN 02/07/20 [History] Sennosides/Docusate Sodium [Senna-Plus Tablet] 1 tab PO HS@199902/07/20 [History] Furosemide [Lasix] 40 mg PO DAILY #30 tablet 02/13/20 [Rx] HYDROcodone/APAP 5-325MG [[place] 5-325] 1 tab PO Q4HR PRN 3 Days #18 tab 02/13/20 [Rx] Pantoprazole [Protonix] 40 mg PO AC-BRKFST tablet. 02/13/20 [Rx] Follow up Appointment(s)/Referral(s): Vern Bhakta DO [Primary Care Provider] - 1-2 days (patient to call office for follow up appt) [facility] Visiting Nurse, [NON-STAFF] - As Needed (palliative care ) Fahad Mathew MD [STAFF PHYSICIAN] - 02/27/20 3:45 pm Patient Instructions/Handouts: Furosemide (By mouth), Hydrocodone/Acetaminophen (By mouth), Heart Failure (DC) Activity/Diet/Wound Care/Special Instructions: Pt has treatment f/u CT scan scheduled for 02/22/20 at 1440 [facility] Discharge Disposition: HOME WITH HOME HEALTH SERVICES
== END 2020-02-13 17:56 | disposition home health service (06) | DRG 292 ==
LOC: EC 21:03 → 4SSUR 02-08 00:30 → 5NMEDONC 02-08 11:50
PROVIDERS: ADMIT Hospitalist; ATTEND Hospitalist
PROC: 30233N1 Transfusion of Nonautologous Red Blood Cells into Peripheral Vein, Percutaneous Approach (ICD-10-PCS; principal; 2020-02-08)
DX: I11.0 Hypertensive heart disease with heart failure (principal); C18.9 Malignant neoplasm of colon, unspecified; C78.7 Secondary malignant neoplasm of liver and intrahepatic bile duct; E44.0 Moderate protein-calorie malnutrition; E87.1 Hypo-osmolality and hyponatremia; J98.11 Atelectasis; L03.116 Cellulitis of left lower limb; L03.115 Cellulitis of right lower limb; R18.0 Malignant ascites; I50.33 Acute on chronic diastolic (congestive) heart failure; D63.0 Anemia in neoplastic disease; Z68.22 Body mass index [BMI] 22.0-22.9, adult; E87.6 Hypokalemia; J44.9 Chronic obstructive pulmonary disease, unspecified; K59.00 Constipation, unspecified; Z11.59 Encounter for screening for other viral diseases; Z53.29 Procedure and treatment not carried out because of patient's decision for other reasons; Z51.5 Encounter for palliative care; R79.1 Abnormal coagulation profile; D72.829 Elevated white blood cell count, unspecified; D64.81 Anemia due to antineoplastic chemotherapy; T45.1X5A Adverse effect of antineoplastic and immunosuppressive drugs, initial encounter; Z87.891 Personal history of nicotine dependence; R11.0 Nausea; R53.81 Other malaise; Z90.49 Acquired absence of other specified parts of digestive tract; Z79.899 Other long term (current) drug therapy; Z80.9 Family history of malignant neoplasm, unspecified; Z82.49 Family history of ischemic heart disease and other diseases of the circulatory system; Z85.038 Personal history of other malignant neoplasm of large intestine; Z90.710 Acquired absence of both cervix and uterus
CPT/HCPCS: 36415; 71046; 71275; 76705; 80048; 80053; 82140; 82378; 82550; 83605; 83735; 83880; 84132; 84484; 85025; 85379; 85610; 85730; 86850; 86900; 86901; 86920; 87040; 93005; 93306; 93970; 96374; 99285

== ENCOUNTER → 2020-02-22 | Outpatient (CLI) | payer MEDICARE ==
[2020-02-22 15:08] LABS: African American GFR (CKD) >90 (>60 ml/min/1.73 sqM); Blood Urea Nitrogen 9 mg/dL (7-17); Non-African American GFR(CKD) >90 (>60 ml/min/1.73 sqM)
--- NOTE | 2020-02-22 18:12 | CT ---
EXAMINATION TYPE: CT ChestAbdPelvis w con DATE OF EXAM: 02/22/2020 COMPARISON: CTA chest 02/07/2020, CT abdomen pelvis 10/12/2019 HISTORY: follow up colon/liver cancer CT DLP: 546.2 mGycm Automated exposure control for dose reduction was used. CONTRAST: CT scan of the chest, abdomen and pelvis is performed with Oral Contrast and with IV Contrast, patien t injected with 100 mL of Isovue 300. FINDINGS: LUNGS: The lungs are hyperexpanded with patchy atelectasis at the right lung base. No concerning pare nchymal mass or nodule identified small bilateral pleural effusions. No pneumothorax seen. The trach eobronchial tree is patent. MEDIASTINUM: There are no greater than 1 cm hilar or mediastinal lymph nodes. Cardiac size normal. Ca lcified coronary artery disease. No pericardial effusion is seen. Thoracic aorta is normal in calib er with mild calcified atherosclerotic disease. OTHER: No axillary lymphadenopathy. Right-sided MediPort distal tip in the cavoatrial junction. LIVER/GB: Extensive hepatic metastatic disease appears similar to 02/07/2020 CT comparison. Nodular pe ripheral contour. BILIARY SYSTEM: Normal. PANCREAS: Normal. SPLEEN: Normal. ADRENALS: Normal. KIDNEYS: No hydronephrosis. Exophytic round 3.4 x 3.1 x 2.8 cm heterogenous solid enhancing renal mas s of the left upper pole. BOWEL: Small hiatal hernia. No evidence of bowel obstruction. Oral contrast is seen to the level of the sigmoid colon. Within the mid sigmoid colon there is a 2.5 x 1.2 cm polypoid filling defect with stalk which appears contiguous with the colon wall (4:105, 8:27). PERITONEUM: No pneumoperitoneum. There is moderate volume ascites. ADENOPATHY: No lymphadenopathy. PELVIS: Urinary bladder incompletely distended. Uterus likely surgically absent. VASCULATURE: No abdominal aortic aneurysm. Moderate calcified atherosclerotic disease. MUSCULOSKELETAL: Mild anasarca. No aggressive osseous destructive lesions. IMPRESSION: 1. Mid sigmoid colon 2.5 cm polypoid filling defect with stalk contiguous with the colon wall. Findin gs likely represent polypoid mass, and are not felt to represent intraluminal debris. 2. Diffuse hepatic metastases similar to 02/07/2020 comparison. 3. Left renal upper pole exophytic 3.4 cm enhancing solid mass. Differential includes primary renal m alignancy such as RCC, oncocytoma, or lipid poor AML, as well as metastatic disease. Correlate with a ny available outside imaging for stability, and consider tissue diagnosis. 4. No evidence of metastatic disease of the chest.
== END | disposition home or self-care (01) ==
LOC: RADPROMAIN 13:20
PROVIDERS: ATTEND Internal Medicine Hematology & Oncology
DX: C78.7 Secondary malignant neoplasm of liver and intrahepatic bile duct (principal); C18.9 Malignant neoplasm of colon, unspecified
CPT/HCPCS: 82565; 84520; 71260; 74177; J1642; Q9967